=== PATIENT | male | born 1955 | race Caucasian/White ===

== ENCOUNTER → 2020-05-17 12:45 | Outpatient (CLI) | payer MEDICARE, SELFPAY ==
[2020-05-17 18:59] LABS: SARS-CoV-2 RNA PCR Negative
== END ==
PROVIDERS: Visit Provider Internal Medicine Gastroenterology
DX: Z01.812 Encounter for preprocedural laboratory examination (principal); Z20.822 Contact with and (suspected) exposure to COVID-19
CPT/HCPCS: C9803; U0003; U0005

== ENCOUNTER 2020-05-20 01:06 | Day surgery (SDC) | payer MEDICARE, SELFPAY ==
[2020-05-08 14:57] VITALS: BMI 31.1
[2020-05-20 09:41] VITALS: BP 159/78; PULSE 58; RESP 16; TEMP 36.2; O2SAT 100
[2020-05-20] MEDS: LACTATED RINGERS 1,000 ML 150 ML IV CONT (10:08)
[2020-05-20 10:14] LABS: Glucose Point of Care 74 (65-105)
--- NOTE | 2020-05-20 10:36 | WPDANESEPPF ---
Anes - Initial Pre Proc Eval Procedure: Operation Date: 05/20/20 11:15 Proposed Procedures p Colonoscopy - Petr Michaels MD Date/Time: 05/20/20 10:36 Surgeon: Petr Michaels MD Pre Op Diagnosis: positive cologuard Patient Data Age: 64 Gender: M Height: 5 ft 11 in Weight: 100.7 kg Last Vital Signs Temp 97.2 F L 05/20/20 09:41 Pulse 58 L 05/20/20 09:41 Resp 16 05/20/20 09:41 BP 159/78 H 05/20/20 09:41 Pulse Ox 100 05/20/20 09:41 Allergies Allergy/AdvReac Type Severity Reaction Status Date / Time prednisone AdvReac Intermediate INCREASED Verified 05/20/20 09:40 GLUCOSE LEVEL Cat Dander Allergy Severe BREATHING Uncoded 05/20/20 09:40 DIFFICULTY Dust Allergy Severe BREATHING Uncoded 05/20/20 09:40 DIFFICULTY Home Medications Medication Instructions Recorded Confirmed Type albuterol sulfate 2 puff INHALATION Q4-6H PRN 05/08/20 05/20/20 History buspirone 10 mg PO TID 05/08/20 05/20/20 History cyclobenzaprine 10 mg PO TID PRN 05/08/20 05/20/20 History vvvzjmdygfw-lguouuwya-fattenfw 1 ea INHALATION DAILY 05/08/20 05/20/20 History [Trelegy Ellipta] gabapentin 300 mg PO TID 05/08/20 05/20/20 History hydrocodone-acetaminophen 1 tablet PO BID 05/08/20 05/20/20 History insulin glargine [Lantus Solostar 44 unit SUBCUT QAM 05/08/20 05/20/20 History U-100 Insulin] levothyroxine 200 mcg PO DAILY 05/08/20 05/20/20 History lisinopril 20 mg PO DAILY 05/08/20 05/20/20 History metoprolol succinate 100 mg PO DAILY 05/08/20 05/20/20 History pantoprazole 40 mg PO DAILY 05/08/20 05/20/20 History pravastatin 40 mg PO DAILY 05/08/20 05/20/20 History rivaroxaban [Xarelto] 20 mg PO HS 05/08/20 05/20/20 History sodium,potassium,mag sulfates 17.5 See Rx Instructions PO .COMPLEX 05/08/20 05/20/20 Rx gram-3.13 gram-1.6 gram oral soln #354 ml Laboratory Tests 05/20/20 10:07 POC Capillary Glucose 74 mg/dl mg/dl (65-105) Patient hx anesthesia problems: none Family hx anesthesia problems: none PMFSH Past Medical History Medical History (Updated 05/20/20 @ 10:36 by Jose De Jesus Garnica MD) Atrial fibrillation had ablation COPD (chronic obstructive pulmonary disease) Diabetes Hyperlipidemia Hypertension Hypothyroid Social History Social History Smoking packs per day: 1 Smoking cigarettes per day: 20.0 Years smoked: 53 Smoking pack-years: 53.00 Smoking status: Current every day smoker Tobacco type: cigarettes Alcohol intake: current Drinks per week: 4 Alcohol use details: BEERS Substance use: never Substance use type: does not use Living arrangements: with family Spiritual care concerns: No Anes - Eval Final PreProcedure Day of Procedure 05/20/20 10:36 Patient weight: obese Heart: regular rate and rhythm Lungs: clear to auscultation Airway: Mallampati scale class II Neurological: alert and oriented Last oral intake: >/= 8 hours ASA classification: III Emergent: no Anesthetic plan: proceed Anesthesia type and monitoring: general GIVS and standard monitoring Informed Consent: The patient's anesthetic plan and its attendant risks and benefits were discussed with the patient/family/POA. Questions were solicited and answers provided to the satisfaction of the patient/family/POA.
--- NOTE | 2020-05-20 10:52 | PM.HPGS ---
History of Present Illness History of Present Illness Consent: Risks, benefits, and alternatives have been discussed and questions answered. Patient agrees to proceed with procedure. Chief complaint: positive cologuard Narrative: Binu Lynch is a 64 year old male with + cologuard, had colonoscopy about 6 years ago. Review of Systems Constitutional: Constitutional: Denies headache(s) and Denies weakness Eyes: Eyes: Denies blurry vision ENT: Reports Normal hearing present, Denies headache(s) and Denies neck pain Cardiovascular: Cardiovascular: Denies chest pain and Denies dyspnea Respiratory: Respiratory: Denies dyspnea Gastrointestinal: Gastrointestinal: Reports no additional gastrointestinal complaints Genitourinary: Genitourinary: Denies dysuria Musculoskeletal: Musculoskeletal: Denies neck pain Integumentary/Breasts: Skin/Breast: Denies dry skin Neurologic: Reports Normal hearing present, Denies headache(s) and Denies weakness Psychiatric: Psychiatric: Denies anxiety Endocrine: Endocrine: Denies change in body appearance Hematologic/Lymphatic: Hematologic/Lymphatic: Denies easy bleeding Allergic/Immunologic: Allergic/Immunologic: Denies urticaria PMFSH Past Medical History Medical History (Updated 05/20/20 @ 10:52 by Petr Michaels MD) Atrial fibrillation had ablation COPD (chronic obstructive pulmonary disease) Diabetes Hyperlipidemia Hypertension Hypothyroid Positive colorectal cancer screening using Cologuard test Social History Social History Smoking packs per day: 1 Smoking cigarettes per day: 20.0 Years smoked: 53 Smoking pack-years: 53.00 Smoking status: Current every day smoker Tobacco type: cigarettes Alcohol intake: current Drinks per week: 4 Alcohol use details: BEERS Substance use: never Substance use type: does not use Living arrangements: with family Spiritual care concerns: No Meds Home Medications and Allergies Home Medications Medication Instructions Recorded Confirmed Type albuterol sulfate 2 puff INHALATION Q4-6H PRN 05/08/20 05/20/20 History buspirone 10 mg PO TID 05/08/20 05/20/20 History cyclobenzaprine 10 mg PO TID PRN 05/08/20 05/20/20 History pybgonycfow-bweczwmkx-rllhfshr 1 ea INHALATION DAILY 05/08/20 05/20/20 History [Trelegy Ellipta] gabapentin 300 mg PO TID 05/08/20 05/20/20 History hydrocodone-acetaminophen 1 tablet PO BID 05/08/20 05/20/20 History insulin glargine [Lantus Solostar 44 unit SUBCUT QAM 05/08/20 05/20/20 History U-100 Insulin] levothyroxine 200 mcg PO DAILY 05/08/20 05/20/20 History lisinopril 20 mg PO DAILY 05/08/20 05/20/20 History metoprolol succinate 100 mg PO DAILY 05/08/20 05/20/20 History pantoprazole 40 mg PO DAILY 05/08/20 05/20/20 History pravastatin 40 mg PO DAILY 05/08/20 05/20/20 History rivaroxaban [Xarelto] 20 mg PO HS 05/08/20 05/20/20 History sodium,potassium,mag sulfates 17.5 See Rx Instructions PO .COMPLEX 05/08/20 05/20/20 Rx gram-3.13 gram-1.6 gram oral soln #354 ml Allergies Allergy/AdvReac Type Severity Reaction Status Date / Time prednisone AdvReac Intermediate INCREASED Verified 05/20/20 09:40 GLUCOSE LEVEL Cat Dander Allergy Severe BREATHING Uncoded 05/20/20 09:40 DIFFICULTY Dust Allergy Severe BREATHING Uncoded 05/20/20 09:40 DIFFICULTY Vital Signs Vital Signs - 24 hr 05/20/20 09:41 Temperature 97.2 F L Pulse Rate 58 L Respiratory Rate 16 Blood Pressure 159/78 H Pulse Oximetry 100 Exam Const: General: comfortable and no acute distress HENMT: General nose exam: Normal nares present Eyes: General: appearance normal, both eyes and all related structures Neck: Neck: no JVD Resp: Auscultation: clear to auscultation bilaterally Cardio: Rate: regular rate Rhythm: regular rhythm GI: Inspection: non-distended GI Palp: Yes Soft to palpation Skin: General skin exam: normal color Neuro: General: gait nor
[2020-05-20 11:21] VITALS: BP 134/60; PULSE 53; RESP 15; O2SAT 97
[2020-05-20 11:31] VITALS: BP 148/80; PULSE 50; RESP 17; O2SAT 98
[2020-05-20 11:41] VITALS: BP 167/84; PULSE 50; RESP 18; O2SAT 99
== END 2020-05-20 11:48 | disposition home or self-care (01) ==
PROVIDERS: Visit Provider Internal Medicine Gastroenterology
PROC: 0DJD8ZZ Inspection of Lower Intestinal Tract, Via Natural or Artificial Opening Endoscopic (ICD-10-PCS; CPT 45378; principal; 2020-05-20 11:15)
DX: R19.5 Other fecal abnormalities (principal); D12.5 Benign neoplasm of sigmoid colon; I48.20 Chronic atrial fibrillation, unspecified; I10 Essential (primary) hypertension; J44.9 Chronic obstructive pulmonary disease, unspecified; E78.5 Hyperlipidemia, unspecified; E03.9 Hypothyroidism, unspecified; F17.210 Nicotine dependence, cigarettes, uncomplicated
CPT/HCPCS: 45385; 45380; 82948; 88305; J2704; J7120

== ENCOUNTER 2020-10-23 12:36 | Inpatient (IN) | payer MEDICARE, SELFPAY ==
[2020-10-23] VITALS (9 sets, daily range): BP systolic 138–184; BP diastolic 64–88; PULSE 44–64; RESP 12–20; TEMP 36.6–36.9; O2SAT 96–99; BMI 31.0
--- NOTE | ~2020-10-23 | XR_ITS ---
XR chest 1V 10/23/2020 13:30 Indication: Dyspnea. History of A. fib. COPD. Procedure: PA view of the chest Comparison: Comparison to multiple prior studies sequentially, with oldest reviewed study dated 04/06. Findings: Heart size normal. There are calcified granulomas in the right midlung. There is left basil ar atelectasis/scarring. No focal pneumonia, edema, pleural effusion or pneumothorax. Impression: 1: Left basilar atelectasis/scarring. Reviewed, dictated and finalized at location A. Impression: 1: Left basilar atelectasis/scarring.
--- NOTE | ~2020-10-23 | MR_ITS ---
EXAMINATION: MR brain/brain stem wo con DATE: 10/24/2020 11:51 INDICATION: Transient ischemic attack. TECHNIQUE: Magnetic resonance imaging (MRI) of the brain and brainstem was performed without intraven ous contrast. Sequences included sagittal and axial T1-weighted FSE, axial diffusion-weighted FS EPI, axial T2*-weighted GRE, axial T2-weighted FLAIR Propeller, and axial T2-weighted Propeller. Apparent diffusion coefficient (ADC) maps were created. COMPARISON: Head CT 10/23/2020 FINDINGS: There is a small acute infarct in the left thalamus. There are old lacunar infarcts in the bilateral basal ganglia. There is no intracranial hemorrhage or abnormal mass lesion. There are scatt ered areas of nonspecific increased T2-weighted signal intensity in the cerebral white matter, which is within normal limits for the patient's age. The ventricles are normal in size. There is mild mucos al thickening in the paranasal sinuses. There are likely changes of ocular lens replacement surgeries . The mastoid air cells are normal. IMPRESSION: 1. Small acute infarct in the left thalamus. 2. Old lacunar infarcts in the bilateral basal ganglia. Reviewed, dictated and finalized at location B.
--- NOTE | ~2020-10-23 | US_ITS ---
EXAMINATION: US carotid duplex BI DATE: 10/24/2020 13:21 INDICATION: Acute infarct in left thalamus. TECHNIQUE: Grayscale, color Doppler, and pulsed Doppler images of the cervical carotid arteries were obtained. The degree of vessel stenosis is placed in one of the following categories: normal, <50%, 5 0-69%, >=70% but less than near-occlusion, near-occlusion, or total occlusion. Note that percent sten osis relative to normal distal artery lumen diameter is indirectly measured from velocity measurement s as described by Tai, et al. Radiology 2003; 229:340-346. COMPARISON: None. FINDINGS: RIGHT: The right common carotid artery (CCA) peak systolic velocity (PSV) is 78 cm/s. The right internal car otid artery (ICA) PSV is 140 cm/s. The right ICA end-diastolic velocity (EDV) is 38 cm/s. The right I CA/CCA PSV ratio is 1.8. Grayscale and color Doppler images yield an estimate of >=50% diameter reduc tion from plaque in the ICA. There is antegrade flow in the right vertebral artery. LEFT: The left CCA PSV is 94 cm/s. The left ICA PSV is 85 cm/s. The left ICA EDV is 16 cm/s. The left ICA/C CA PSV ratio is 0.9. Grayscale and color Doppler images yield an estimate of <50% diameter reduction from plaque in the ICA. There is antegrade flow in the left vertebral artery. IMPRESSION: 1. 50-69% stenosis in the right internal carotid artery. 2. <50% stenosis in the left internal carotid artery. Reviewed, dictated and finalized at location B.
--- NOTE | ~2020-10-23 | CT_ITS ---
EXAMINATION: CT brain wo con DATE: 10/23/2020 13:23 INDICATION: Right facial numbness. TECHNIQUE: Computed tomography (CT) of the head was performed without intravenous contrast. The mA wa s adjusted according to patient size. Iterative reconstruction technique was employed. The dose-lengt h product was 605.33 mGy-cm. COMPARISON: Head CT 02/17/2015 FINDINGS: There is an old lacunar infarct in the right lentiform nucleus, new from 02/17/15. There is no intracranial hemorrhage, acute infarction, or abnormal intracranial mass lesion. The ventricles a re normal in size. There are likely changes of ocular lens replacement surgeries. There is mild mucos al thickening in the paranasal sinuses. The mastoid air cells are normal. IMPRESSION: 1. Old lacunar infarct in the right lentiform nucleus. Reviewed, dictated and finalized at location B.
--- NOTE | 2020-10-23 12:41 | ECG_ITS ---
Measurements Intervals [address] Rate: 54 P: 75 ND: 183 QRS: -12 QRSD: 95 T: 15 QT: 461 QTc: 437 Interpretive Statements SINUS BRADYCARDIA EARLY PRECORDIAL R/S TRANSITION BORDERLINE T WAVE ABNORMALITY- INFERIOR LEADS BORDERLINE ECG Electronically Signed On 10-23-2020 13:14:33 CDT by Dago Henry D.O.
[2020-10-23 13:13] LABS: Glucose Point of Care 129 mg/dl (65-105)
[2020-10-23 13:24] LABS: Basophils Absolute Auto 0.1 K/mm3 (0.0-0.1); Basophils Percent Auto 0.9 % (0.2-1.2); Eosinophils Absolute Auto 0.4 K/mm3 (0-0.3); Eosinophils Percent Auto 4.9 % (0-4.4); Hematocrit 45.3 % (42.0-52.0); Hemoglobin 14.9 g/dL (14.0-18.0); Immature Granulocyte Absolute 0.02 K/mm3 (0.00-0.031); Immature Granulocyte Percent A 0.3 % (0-0.5); Lymphocytes Absolute Auto 2.57 K/mm3 (0.9-3.2); Lymphocytes Percent Auto 32.9 % (18.3-44.2); Mean Corpuscular HGB Conc 32.9 g/dl (32-36); Mean Corpuscular Hemoglobin 32.5 pg (26-34); Mean Corpuscular Volume 98.7 fl (80-100); Mean Platelet Volume 9.7 fl (7.4-10.4); Monocytes Absolute Auto 0.7 K/mm3 (0.1-0.6); Monocytes Percent Auto 9.4 % (2.6-8.5); Neutrophils Percent Auto 51.6 % (45.5-73.1); Platelet Count Result 223 k/mm3 (150-375); Red Blood Count 4.59 M/mm3 (4.6-6.20); Red Cell Distribution Width 13.1 % (11.5-14.5); White Blood Count 7.8 K/mm3 (4.5-10.0)
[2020-10-23 13:35] LABS: Anion Gap 8 mmol/L (8-16); Blood Urea Nitrogen 18 mg/dL (9-20); Calcium 9.3 mg/dL (8.4-10.2); Carbon Dioxide 25 mmol/L (22-30); Chloride 104 mmol/L (98-107); Estimated CRCL calculation 66 ml/min; Estimated Glomerular Filt Rate > 60; Glucose 128 mg/dL (65-110); Potassium 4.3 mmol/L (3.4-5.0); Sodium 137 mmol/L (137-145)
--- NOTE | 2020-10-23 13:35 | ED.GENADULT ---
HPI - General Adult General Chief complaint: Neuro Symptoms/Deficit Stated complaint: NEURO SYM Time Seen by Provider: 10/23/20 13:04 Source: patient History of Present Illness HPI narrative: Patient is a 64 y/o male complaining of right arm, right lip and tongue numbness since yesterday afternoon. He describes his numbness as moderate. There is no known alleviating or exacerbating factor. He has no weakness. His right arm numbness has resolved spontaneously, but he still has some right lip and tongue numbness/tingling sensation. Related Data Home Medications Medication Instructions Recorded Confirmed albuterol sulfate 2 puff INHALATION Q4-6H PRN 05/08/20 10/23/20 buspirone 10 mg PO BID 05/08/20 10/23/20 cyclobenzaprine 10 mg PO TID PRN 05/08/20 10/23/20 uyydyvghujy-vgxcvuwhh-qqgcduus 1 ea INHALATION DAILY 05/08/20 10/23/20 [Trelegy Ellipta] gabapentin 300 mg PO DAILY 05/08/20 10/23/20 hydrocodone-acetaminophen 1 tablet PO QID 05/08/20 10/23/20 insulin glargine [Lantus Solostar 55 unit SUBCUT QAM 05/08/20 10/23/20 U-100 Insulin] levothyroxine 200 mcg PO DAILY 05/08/20 10/23/20 lisinopril 20 mg PO DAILY 05/08/20 10/23/20 metoprolol succinate 100 mg PO DAILY 05/08/20 10/23/20 pantoprazole 40 mg PO DAILY 05/08/20 10/23/20 pravastatin 40 mg PO DAILY 05/08/20 10/23/20 rivaroxaban [Xarelto] 20 mg PO HS 05/08/20 10/23/20 Allergies Allergy/AdvReac Type Severity Reaction Status Date / Time prednisone AdvReac Intermediate INCREASED Verified 10/23/20 17:27 GLUCOSE LEVEL Cat Dander Allergy Severe BREATHING Uncoded 10/23/20 17:27 DIFFICULTY Dust Allergy Severe BREATHING Uncoded 10/23/20 17:27 DIFFICULTY Review of Systems Constitutional: Constitutional: Denies chills, Denies fever(s), Denies headache(s) and Denies weakness Eyes: Eyes: Denies blurry vision ENT: Denies headache(s) and Denies neck pain Cardiovascular: Cardiovascular: Denies chest pain and Denies dyspnea Respiratory: Respiratory: Denies cough and Denies dyspnea Gastrointestinal: Gastrointestinal: Denies abdominal pain, Denies diarrhea, Denies nausea and Denies vomiting Genitourinary: Genitourinary: Denies hematuria and Denies dysuria Musculoskeletal: Musculoskeletal: Denies back pain and Denies neck pain Neurologic: Denies headache(s), Reports paresthesias and Denies weakness [facility] Past Medical History Medical History (Updated 10/23/20 @ 18:09 by Shonna Gonzalez MD) Atrial fibrillation had ablation COPD (chronic obstructive pulmonary disease) Diabetes Hyperlipidemia Hypertension Hypothyroid Positive colorectal cancer screening using Cologuard test Social History Social History Smoking packs per day: 1 Smoking cigarettes per day: 20.0 Years smoked: 50 Smoking pack-years: 50.00 Smoking status: Current every day smoker Tobacco type: cigarettes Second hand tobacco smoke exposure: Yes Alcohol intake: current Drinks per week: 6 Alcohol use details: BEERS Substance use: never Substance use type: does not use Gender identity (if verbalized by the patient): Male Sexual Orientation (if Verbalized by the Patient): Straight or Heterosexual Spiritual care concerns: No Exam Const: General: no acute distress and well developed Orientation/consciousness: oriented to person, oriented to place, oriented to time and patient oriented x3 HENMT: Head: normocephalic Ears: external ears normal General nose exam: Normal external nose present Eyes: General: appearance normal, both eyes and all related structures Conjunctivae: conjunctivae normal Neck: Neck: normal visual inspection and full ROM Chest: Chest palpation & inspection: normal inspection of the chest and no tenderness Resp: Effort & Inspection: normal respiratory effort Auscultation: clear to auscultation bilaterally Cardio: Rate: bradycardic Rhythm: regular rhythm GI: GI Palp: No abdominal tenderness and Yes Soft to palpation Ski
[2020-10-23 13:37] LABS: INR 1.6; Prothrombin Time 18.7 Seconds (11.1-14.7)
[2020-10-23 13:38] LABS: Partial Thromboplastin Time 41.8 SECONDS (22.3-36.8)
[2020-10-23 13:47] LABS: Troponin I < 0.012 ng/mL (0.000-0.034)
--- NOTE | 2020-10-23 17:10 | ADMGEN ---
This patient, Binu Lynch, was admitted to [facility] Surg Room 323-02. Patient/family oriented to hospital policies and general routines including ID bracelet, bed and alarms, visiting hours, pain management, procedures, bathroom and other care routines, personal items, smoking policy, room service/diet, and visiting hours. Information on how to activate the Rapid Response Team has been discussed. Patient/Family are encouraged to report perceived risks to care and to ask questions if they do not understand what they are told or what they should do.
--- NOTE | 2020-10-23 21:26 | PC.NURSE ---
Spoke with Dr. Silva regarding resuming pt's home med, Xarelto. Ok to resume patient's HS meds for tonight, xarelto including. Head CT not showing any intracranial hemorrhage. Pt states he took his Lantus this AM.
[2020-10-23] MEDS: RIVAROXABAN 20 MG TABLET PO (22:04)
[2020-10-23 22:08] LABS: Glucose Point of Care 189 mg/dl (65-105)
--- NOTE | 2020-10-23 22:48 | PM.IMHP ---
H&P: HPI History of Present Illness Date/Time: 10/23/20 22:48 Chief Complaint: Paresthesia Narrative: Patient is a 64 y/o male complaining of right arm right leg, right lip and tongue numbness and tingling sensation that started at work yesterday. Has not worsened but remains steady whole day yesterday. He was out of town working at the time when the symptoms started. He finished his work went to bed woke up this morning felt tired tingling and numbness still remain the same drove back home this morning and came to the ER for evaluation. Since been to the hospital he reports the right arm and right leg numbness has resolved he still has persistent right lip and tongue numbness and tingling sensation but is better than what it was yesterday. He denies any weakness in His arm her leg. his admitted for further evaluation and management. EKG showed sinus bradycardia Chest x-ray with left basilar atelectasis or scarring calcified granulomas in the right mid lung CT head old lacunar infarct in the right lentiform nucleus Labs with normal CBC blood glucose of 128 negative troponin Review of Systems Review of Systems: - CONSTITUTIONAL: Denies weight loss, fever and chills. - HEENT: Denies changes in vision and hearing - RESPIRATORY: Denies SOB and cough. - CV: Denies palpitations and CP. - GI: Denies abdominal pain, nausea, vomiting and diarrhea. - : Denies dysuria and urinary frequency. - MSK: Denies myalgia and joint pain. - SKIN: Denies rash and pruritus. - NEUROLOGICAL: Denies headache and syncope. - PSYCHIATRIC: Denies recent changes in mood. Denies anxiety and depression. All systems reviewed & are unremarkable except as noted in HPI and below Constitutional: Constitutional: Reports fatigue and Reports weakness Neurologic: Reports weakness Endocrine: Endocrine: Reports fatigue [facility] Past Medical History Medical History (Updated 10/23/20 @ 22:54 by Abner Stoddard MD) Atrial fibrillation had ablation COPD (chronic obstructive pulmonary disease) Diabetes Hyperlipidemia Hypertension Hypothyroid Positive colorectal cancer screening using Cologuard test Social History Social History Smoking packs per day: 1 Smoking cigarettes per day: 20.0 Years smoked: 50 Smoking pack-years: 50.00 Smoking status: Current every day smoker Tobacco type: cigarettes Second hand tobacco smoke exposure: Yes Alcohol intake: current Drinks per week: 6 Alcohol use details: NAMRATA Substance use: never Substance use type: does not use Gender identity (if verbalized by the patient): Male Sexual Orientation (if Verbalized by the Patient): Straight or Heterosexual Spiritual care concerns: No Meds Home Medications and Allergies Home Medications Medication Instructions Recorded Confirmed Type albuterol sulfate 2 puff INHALATION Q4-6H PRN 05/08/20 10/23/20 History buspirone 10 mg PO BID 05/08/20 10/23/20 History cyclobenzaprine 10 mg PO TID PRN 05/08/20 10/23/20 History gaocsydcvzy-nkbxdbkyx-cijybvvv 1 ea INHALATION DAILY 05/08/20 10/23/20 History [Trelegy Ellipta] gabapentin 300 mg PO DAILY 05/08/20 10/23/20 History hydrocodone-acetaminophen 1 tablet PO QID 05/08/20 10/23/20 History insulin glargine [Lantus Solostar 55 unit SUBCUT QAM 05/08/20 10/23/20 History U-100 Insulin] levothyroxine 200 mcg PO DAILY 05/08/20 10/23/20 History lisinopril 20 mg PO DAILY 05/08/20 10/23/20 History metoprolol succinate 100 mg PO DAILY 05/08/20 10/23/20 History pantoprazole 40 mg PO DAILY 05/08/20 10/23/20 History pravastatin 40 mg PO DAILY 05/08/20 10/23/20 History rivaroxaban [Xarelto] 20 mg PO HS 05/08/20 10/23/20 History Allergies Allergy/AdvReac Type Severity Reaction Status Date / Time prednisone AdvReac Intermediate INCREASED Verified 10/23/20 17:27 GLUCOSE LEVEL Cat Dander Allergy Severe BREATHING Uncoded 10/23/20 17:27 DIFFICULTY Dust Allergy Severe BREATHING Unco
[2020-10-23 23:41] LABS: Hemoglobin A1C 5.9 % (<5.7)
[2020-10-24] VITALS (11 sets, daily range): BP systolic 149–175; BP diastolic 82–92; PULSE 44–57; RESP 16–20; TEMP 35.8–36.1; O2SAT 94–97
[2020-10-24] MEDS: ASPIRIN 81 MG CHEWABLE TABLET 324 MG PO (00:07)
[2020-10-24] MEDS: LEVOTHYROXINE SODIUM 100 MCG TABLET 200 MCG PO (06:12)
[2020-10-24 07:15] LABS: Glucose Point of Care 120 mg/dl (65-105)
--- NOTE | 2020-10-24 07:19 | PM.IMPN ---
Progress Note: A&P Assessment and Plan (1) Numbness on right side: Code(s): R20.0 - Anesthesia of skin Status: Acute (2) Diabetes: Code(s): E11.9 - Type 2 diabetes mellitus without complications Status: Inactive (3) Atrial fibrillation: Code(s): I48.91 - Unspecified atrial fibrillation Status: Inactive (4) COPD (chronic obstructive pulmonary disease): Code(s): J44.9 - Chronic obstructive pulmonary disease, unspecified Status: Inactive (5) Hyperlipidemia: Code(s): E78.5 - Hyperlipidemia, unspecified Status: Inactive (6) Hypertension: Code(s): I10 - Essential (primary) hypertension Status: Inactive (7) Hypothyroid: Code(s): E03.9 - Hypothyroidism, unspecified Status: Inactive (8) Colon polyp: Code(s): K63.5 - Polyp of colon Status: Acute Additional Plan # right-sided paresthesia started since 10/22/2020. CT head negative for acute stroke. Does have evidence of old lacunar infarct in the right lentiform nucleus. MRI of the brain showed small acute infarct in the left thalamus. It also showed old lacunar infarct in the bilateral basal ganglia. Carotid Doppler showed 50-70% stenosis in the right internal carotid artery. It showed less than 50% stenosis in the left internal carotid artery. He was on Xarelto but I will hold it off until he is evaluated by Neurology Service for concern for hemorrhagic transformation. I discussed it with the neurologist at [facility] and he agrees with that. He does have other risk factors for ischemic stroke which includes current active smoker, diabetes. Lipid profile seems appropriate. Counseled on smoking cessation will check his A1c for diabetes control. I will continue aspirin but will hold Xarelto. Will continue on his statin. He need neurology evaluation. I discussed it with the patient for transferring him to the hospital where he can be seen by Neurology. He agreed to it. I called [facility] at [place] and he is accepted by neurology service, Dr. Vasquez. I am waiting for a call from the hospitalist and bed assignment. # Atrial fibrillation currently sinus rhythm bradycardic. Will hold Xarelto. Echocardiogram is pending. Carotid ultrasound showed 50-70% stenosis in the right internal carotid artery. It showed less than 50% stenosis in the left internal carotid artery # Diabetes mellitus type 2 on insulin resume home insulin regimen. Continue insulin sliding scale. # Hypertension not optimal however due to possible acute stroke will allow permissive hypertension however long-term will need optimal blood pressure control with goal blood pressure less than 130/80 # Hypothyroidism resume home medication # COPD not in exacerbation continue outpatient regimen. # Current smoker advised to stop smoking. # Hyperlipidemia looks like he is only on pravastatin. Lipid profile reviewed in seems appropriate. Will switch pravastatin to atorvastatin due to current symptoms #Colon polyps # DVT prophylaxis already on Xarelto # Full code status Subjective Date/time seen: 10/24/20 07:19 He is still having numbness and tingling on the right side of the face. He denied have any focal neurological weakness. He denied have any visual symptoms. He denied have any headache nausea vomiting. His blood pressure has been noticed to be elevated but can allow all that to have permissive hypertension. He had an MRI done which showed an acute stroke in the thalamus. He need neurology evaluation. I discussed it with the patient for transferring him to the hospital where he can be seen by Neurology. He agreed to it. I called [facility] and he is accepted by neurology service, Dr. Vasquez. I am waiting for a call from the hospitalist and bed assignment. Review of Systems Review of Systems: All systems reviewed & are unremarkable except as noted in HPI and below Exam Narr
[2020-10-24 07:26] LABS: Alanine Aminotransferase 17 U/L (4-50); Albumin Level 4.3 g/dL (3.5-5.1); Alkaline Phosphatase 62 U/L (38-126); Aspartate Amino Transferase 22 U/L (17-59); Bilirubin,Total 0.4 mg/dL (0.2-1.3); Cholesterol 161 mg/dL (0-200); HDL Direct 38 mg/dL; Triglycerides 215 mg/dL (<150)
[2020-10-24 07:37] LABS: LDL Cholesterol Direct 83 mg/dL
[2020-10-24] MEDS: INSULIN GLARGINE (*BKC) 100 UNITS/ML 55 UNITS SUB-Q (08:08)
[2020-10-24] MEDS: HYDROcodone/acetaminophen (*CRX) 7.5-325 MG TABLET 1 TAB PO ×3 (08:12→17:12)
[2020-10-24] MEDS: GABAPENTIN 300 MG CAPSULE PO (08:12)
[2020-10-24] MEDS: METOPROLOL SUCCINATE EXT REL 100 MG TABCR PO (08:13)
[2020-10-24] MEDS: lisinopriL 20 MG TABLET PO (08:13)
[2020-10-24] MEDS: busPIRone HCL 10 MG TABLET PO ×2 (08:13→17:12)
[2020-10-24] MEDS: ASPIRIN 81 MG ENTERIC TABLET PO (08:13)
[2020-10-24] MEDS: PANTOPRAZOLE 40 MG TABLET PO (08:14)
[2020-10-24] MEDS: FLUTICASONE/UMECLIDIN/VILANTER 100-62.5-25 MCG ELLIPTA 1 PUFF INHALATION (10:15)
[2020-10-24] MEDS: ALBUTEROL SULFATE (*SP) AEROSOL 1 PUFF 2 PUFF INHALATION ×2 (10:15→20:54)
--- NOTE | 2020-10-24 12:20 | PM.TDS ---
Transfer Discharge Sum: Prov Provider Date of admission: 10/24/20 15:36 Primary care physician: PHYSICIAN NOT ON STAFF Admitting clinician: Sai Tong MD DS: Admitting Diagnosis Admitting Diagnosis Numbness of the right side with possible TIA Diabetes mellitus Atrial fibrillation on anticoagulation COPD Hypertension Hyperlipidemia Hypothyroidism Significant smoking history History of colon polyp DS: Discharge Diagnosis Discharge Diagnosis (1) Numbness on right side: Code(s): R20.0 - Anesthesia of skin Status: Acute Assessment and Plan: # acute ischemic stroke with Right-sided paresthesia started since 10/22/2020. CT head negative for acute stroke. Does have evidence of old lacunar infarct in the right lentiform nucleus. MRI of the brain showed small acute infarct in the left thalamus. It also showed old lacunar infarct in the bilateral basal ganglia. Carotid Doppler showed 50-70% stenosis in the right internal carotid artery. It showed less than 50% stenosis in the left internal carotid artery. He was on Xarelto but I will hold it off until he is evaluated by Neurology Service for concern for hemorrhagic transformation. I discussed it with the neurologist at [facility] and he agrees with that. He does have other risk factors for ischemic stroke which includes current active smoker, diabetes. Lipid profile seems appropriate. Counseled on smoking cessation will check his A1c for diabetes control. I will continue aspirin but will hold Xarelto. Will continue on his statin. He need neurology evaluation. I discussed it with the patient for transferring him to the hospital where he can be seen by Neurology. He agreed to it. I called [facility] at [place] and he is accepted by neurology service, Dr. Vasquez and hospitalist Dr. Carreno. He was transferred today once bed was made available. He left the hospital early in the morning and I did not see him today on 10/25. # Atrial fibrillation currently sinus rhythm bradycardic . Xarelto will be put on hold because of new acute stroke. Echocardiogram is pending. Carotid ultrasound showed 50-70% stenosis in the right internal carotid artery. It showed less than 50% stenosis in the left internal carotid artery # Diabetes mellitus type 2 on insulin resume home insulin regimen. Check A1c SSI # Hypertension not optimal however due to acute stroke will allow permissive hypertension and will hold his blood pressure medications. # Hypothyroidism resume home medication # COPD not in exacerbation continue home regimen # Current smoker he was encouraged to stop smoking. # Hyperlipidemia he was on pravastatin at the time of presentation which was transitioned to atorvastatin. Lipid profile seems appropriate. #Colon polyps continue to monitor # DVT prophylaxis subQ heparin will be started today since Xarelto is put on hold. # Full code status He was transferred to [facility] in [place] for neurology service evaluation and further recommendation. We do not have neurology coverage for this week. (2) Diabetes: Code(s): E11.9 - Type 2 diabetes mellitus without complications Status: Inactive (3) Atrial fibrillation: Code(s): I48.91 - Unspecified atrial fibrillation Status: Inactive (4) COPD (chronic obstructive pulmonary disease): Code(s): J44.9 - Chronic obstructive pulmonary disease, unspecified Status: Inactive (5) Hyperlipidemia: Code(s): E78.5 - Hyperlipidemia, unspecified Status: Inactive (6) Hypertension: Code(s): I10 - Essential (primary) hypertension Status: Inactive (7) Hypothyroid: Code(s): E03.9 - Hypothyroidism, unspecified Status: Inactive (8) Colon polyp: Code(s): K63.5 - Polyp of colon Status: Acute Transfer Discharge Sum: Med Medications Active and Home Medications: Home Medications albuterol sulfate 2 puff
[2020-10-24 12:28] LABS: Glucose Point of Care 112 mg/dl (65-105)
[2020-10-24 16:26] LABS: Glucose Point of Care 192 mg/dl (65-105)
[2020-10-24] MEDS: ATORVASTATIN 40 MG TABLET PO (20:34)
[2020-10-24] MEDS: HYDROcodone/acetaminophen (*CRX) 7.5-325 MG TABLET 0.5 TAB PO (21:18)
[2020-10-24 23:30] LABS: Glucose Point of Care 121 mg/dl (65-105)
[2020-10-25] VITALS: PULSE 51
[2020-10-25 04:00] VITALS: PULSE 49
[2020-10-25] MEDS: LEVOTHYROXINE SODIUM 100 MCG TABLET 200 MCG PO (05:34)
[2020-10-25 05:52] VITALS: BP 178/79; PULSE 50; RESP 16; TEMP 36.6; O2SAT 95
== END 2020-10-25 06:55 | disposition short-term general hospital (02) | DRG 65 ==
LOC: ANHED 13:11 → ANH3MEDSUR 16:41
PROVIDERS: Internal Medicine; Admitting Provider Family Medicine; Emergency Provider Emergency Medicine; Visit Provider Internal Medicine Critical Care Medicine
DX: I63.9 Cerebral infarction, unspecified (principal); I48.20 Chronic atrial fibrillation, unspecified; R20.0 Anesthesia of skin; E11.9 Type 2 diabetes mellitus without complications; I10 Essential (primary) hypertension; E03.9 Hypothyroidism, unspecified; E78.5 Hyperlipidemia, unspecified; J44.9 Chronic obstructive pulmonary disease, unspecified; F17.210 Nicotine dependence, cigarettes, uncomplicated; K63.5 Polyp of colon; R29.701 NIHSS score 1; Z79.01 Long term (current) use of anticoagulants
CPT/HCPCS: 36415; 70450; 70551; 71045; 80048; 80061; 80076; 82948; 83036; 84484; 85025; 85610; 85730; 93005; 93880; 94640; 97161; 97165; 99285; A9270; G0378; J1815

== ENCOUNTER 2021-05-05 13:32 | Outpatient (CLI) | payer MEDICARE, SELFPAY ==
--- NOTE | ~2021-05-05 | US_ITS ---
EXAMINATION: US carotid duplex BI DATE: 05/05/2021 15:02 INDICATION: Carotid atherosclerosis TECHNIQUE: Grayscale, color Doppler, and pulsed Doppler images of the cervical carotid arteries were obtained. The degree of vessel stenosis is placed in one of the following categories: normal, <50%, 5 0-69%, >=70% but less than near-occlusion, near-occlusion, or total occlusion. Note that percent sten osis relative to normal distal artery lumen diameter is indirectly measured from velocity measurement s as described by Tai, et al. Radiology 2003; [id number]. Notes: Normal: Peak systolic velocity <125 centimeters/sec and no plaque <50%. Peak systolic velocity <125 ( EDV <40; ICA/CCA PSV ratio <2.0; used these factors only a tandem lesions or low cardiac output or co ntralateral disease) 50-69 %: PSV 125-230 (EDV 40-100; ratio 2-4) >= 70% but less than near occlusion: PSV greater than 230 (EDV > 100; ratio> 4.0) Near Occlusion: PSV that is variable; markedly narrowed lumen Occlusion: Absent flow on color/spectral Doppler and no lumen on hinson scale. COMPARISON: None. FINDINGS: RIGHT: The right common carotid artery (CCA) peak systolic velocity (PSV) is 124 cm/s. The right internal ca rotid artery (ICA) PSV is 102 cm/s. The right ICA end-diastolic velocity (EDV) is 28 cm/s. The right ICA/CCA PSV ratio is 0.8. The external carotid artery (ECA) PSV is 200 cm/s. There is antegrade flow in the right vertebral artery. LEFT: The left CCA PSV is 96 cm/s. The left ICA PSV is 96 cm/s. The left ICA EDV is 34 cm/s. The left ICA/C CA PSV ratio is 1. The ECA PSV is 102 cm/s. There is antegrade flow in the left vertebral artery. IMPRESSION: 1. Less than 50% stenosis in the right internal carotid artery by sonographic criteria. 2. Less than 50% stenosis in the left internal carotid artery by sonographic criteria. Reviewed, dictated and finalized at location A. REGISTER MECHANIC IMPRESSION: 1. Less than 50% stenosis in the right internal carotid artery by sonographic john izaguirre. 2. Less than 50% stenosis in the left internal carotid artery by sonographic shakila pandey.
--- NOTE | ~2021-05-05 | US_ITS ---
US art doppler w press LE BI INDICATION: Peripheral vascular disease. Carotid atherosclerosis. TECHNIQUE: Segmental pressures and plethysmographic and Doppler waveforms of the brachial and lower e xtremity arteries were obtained. COMPARISON: None. FINDINGS: Right and left brachial artery pressures of 182 mm Hg and 186 mm Hg, respectively, are concordant (no rmal difference <= 30 mmHg). The right ankle-brachial index (BENSON) is 1 (normal >= 0.9-1.0). The right great toe-brachial index (TB I) is 0.59 (normal >= 0.60). The left BENSON is 0.99. The left TBI is 0.61. There is biphasic flow in the lower extremity arteries. IMPRESSION: 1. Normal bilateral ankle-brachial indices. Reviewed, dictated and finalized at location A. L ARMS ARTILLERY REPAIRER
== END 2021-05-05 13:33 | disposition home or self-care (01) ==
DX: I73.9 Peripheral vascular disease, unspecified (principal); I65.23 Occlusion and stenosis of bilateral carotid arteries
CPT/HCPCS: 93880; 93923

== ENCOUNTER 2021-05-08 06:59 | Outpatient (CLI) | payer MEDICARE, SELFPAY ==
--- NOTE | ~2021-05-08 | US_ITS ---
EXAMINATION: US aorta DATE: 05/08/2021 08:10 INDICATION: Abdominal aortic aneurysm. TECHNIQUE: Grayscale, color Doppler, and pulsed Doppler images of the aorta and common iliac arteries were obtained. COMPARISON: CT abdomen and pelvis 02/01/2010 FINDINGS: The aorta is normal in caliber. The right common iliac artery is normal in caliber. The left common i liac artery is normal in caliber. IMPRESSION: 1. No abdominal aortic aneurysm. Reviewed, dictated and finalized at location A. ER INSPECTOR
== END 2021-05-08 07:00 | disposition home or self-care (01) ==
LOC: ANHIMG 07:04
DX: I71.4 Abdominal aortic aneurysm, without rupture (principal)
CPT/HCPCS: 76775

== ENCOUNTER → 2021-12-23 09:15 | Outpatient (CLI) | payer MEDICARE, SELFPAY ==
--- NOTE | ~2021-12-23 | XR_ITS ---
EXAMINATION: XR chest 2V DATE: 12/23/2021 09:42 INDICATION: Shortness of breath. TECHNIQUE: Frontal and lateral views of the chest were obtained on 3 radiographs. COMPARISON: Chest single view 10/23/2020 FINDINGS: Calcified right lung nodules and calcified right hilar lymph nodes are consistent with old granulomatous disease. There is mild atelectasis at left lung base. No pleural effusion or pneumothor ax. The heart size is normal. There is an electronic implant in left anterior chest wall. There are c hanges of anterior fusion procedure in cervical spine. IMPRESSION: 1. Mild atelectasis at left lung base. Reviewed, dictated and finalized at location B.
--- NOTE | ~2021-12-23 | XR_ITS ---
EXAMINATION: XR shoulder LT min 2V DATE: 12/23/2021 09:42 INDICATION: Left shoulder pain. TECHNIQUE: 4 views of left shoulder were obtained. COMPARISON: None. FINDINGS: Bone alignment is normal. No fracture. There is moderate osteoarthritis of glenohumeral carl nt and mild osteoarthritis of acromioclavicular joint. There is a loose body in the glenohumeral join t. There are changes of anterior fusion procedures in cervical spine. IMPRESSION: 1. Polyarticular osteoarthritis. 2. Loose body in glenohumeral joint. Reviewed, dictated and finalized at location B.
== END ==
DX: M25.512 Pain in left shoulder (principal); J44.9 Chronic obstructive pulmonary disease, unspecified; M19.012 Primary osteoarthritis, left shoulder; M24.012 Loose body in left shoulder; J98.11 Atelectasis
CPT/HCPCS: 71046; 73030

== ENCOUNTER 2022-02-02 10:53 | Outpatient (CLI) | payer MEDICARE, SELFPAY ==
--- NOTE | ~2022-02-02 | CT_ITS ---
EXAMINATION: CT lung screening DATE: 02/02/2022 11:11 INDICATION: History of nicotine dependence. TECHNIQUE: Computed tomography (CT) of the chest was performed without intravenous contrast. The dose -length product was 282.45 mGy-cm. Automated exposure control and iterative reconstruction technique were employed. COMPARISON: CT dated 07/09/2010 FINDINGS: Heart size is normal. There are calcified mediastinal lymph nodes, consistent with chronic granulomatous disease. There is atherosclerosis of the aorta and coronary arteries. There are calcifi ed granulomas of the spleen. No thoracic lymphadenopathy. No significant pleural or pericardial effus ion. There is a 6 mm fissural nodule on the left without significant change from prior examination al lowing for technique. There is a 5 mm fissural nodule on the right, image 71. There is a stable 5 mm fissural nodule on the right, image 86. Right basilar atelectasis/scarring, slightly increased compar ed with prior study. Mild thoracic spondylosis. No focal lytic or blastic lesions. IMPRESSION: 1. Lung-RADS category 2: Benign appearance or behavior. Continue annual screening with noncontrast lo w-dose chest CT in 12 months. Reviewed, dictated and finalized at location A. TRIC MOTOR REPAIRING SUPERVISOR IMPRESSION: 1. Lung-RADS category 2: Benign appearance or behavior. Continue annual screeni ng with noncontrast low-dose chest CT in 12 months.
== END 2022-02-02 10:54 | disposition home or self-care (01) ==
DX: Z12.2 Encounter for screening for malignant neoplasm of respiratory organs (principal); Z87.891 Personal history of nicotine dependence
CPT/HCPCS: 71271

== ENCOUNTER → 2022-05-28 09:11 | Outpatient (CLI) | payer MEDICARE, SELFPAY ==
--- NOTE | ~2022-05-28 | CT_ITS ---
Non-contrast Head CT History: Headache COMPARISON: 10/23/2020 Technique: Axial non-contrast imaging of the brain was performed. Dose reduction technique was used on this scan by utilizing automated exposure control and iterative reconstruction technique. The dose -length product (DLP) was 599.57 mGy-cm. Findings: There is no evidence of intracranial hemorrhage, mass lesion, or acute infarct. Stable chr onic lacunar infarct in the right basal ganglia. The ventricles and subarachnoid spaces are normal i n size. The calvarium appears normal. The visualized paranasal sinuses and mastoid air cells are cl ear. Impression: No acute abnormality seen. Stable chronic lacunar infarct in the right basal ganglia. Reviewed, dictated and finalized at location . Impression: No acute abnormality seen. Stable chronic lacunar infarct in the right basal ganglia.
== END ==
DX: R51.9 Headache, unspecified (principal); Z86.73 Personal history of transient ischemic attack (TIA), and cerebral infarction without residual deficits
CPT/HCPCS: 70450

== ENCOUNTER → 2022-11-05 07:33 | Outpatient (CLI) | payer MEDICARE, SELFPAY ==
--- NOTE | ~2022-11-05 | US_ITS ---
Renal-Bladder ultrasound Clinical History: Chronic kidney disease Technique: Real-time sonographic imaging of the kidneys and urinary bladder was performed. Findings: The right kidney measures 11.7 cm in length and the left kidney measures 10.5 cm. There is no hydronephrosis or renal calculus identified. Renal cortical echogenicity is within normal limits. No renal mass lesion is identified. The urinary bladder is moderately distended at the time of this exam. No intraluminal echoes are iden tified. No abnormal wall thickening is seen. Impression: Unremarkable ultrasound of the kidneys and urinary bladder. Reviewed, dictated and finalized at location M. Impression: Unremarkable ultrasound of the kidneys and urinary bladder.
== END ==
DX: I12.9 Hypertensive chronic kidney disease with stage 1 through stage 4 chronic kidney disease, or unspecified chronic kidney disease (principal); E11.22 Type 2 diabetes mellitus with diabetic chronic kidney disease; N18.30 Chronic kidney disease, stage 3 unspecified
CPT/HCPCS: 76775

== ENCOUNTER 2023-08-07 08:05 | Emergency (ER) | payer MEDICARE, SELFPAY ==
--- NOTE | ~2023-08-07 | XR_ITS ---
XR knee RT min 4V DATE: 08/07/2023 08:22 INDICATION: Fall. Medial right knee pain TECHNIQUE: 4 views COMPARISON: None FINDINGS: There is moderately prominent distention of the suprapatellar bursa consistent with knee rosas int effusion. No fracture, dislocation, periosteal reaction or bone destruction is detected. Mild loss of medial compartment joint space. No radiopaque intra-articular loose body or chondrocalci nosis. Calcification of the femoral, popliteal and trifurcation arteries. IMPRESSION: Knee joint effusion; no fracture or dislocation Mild loss of medial compartment joint space Reviewed, dictated and finalized at location A.
[2023-08-07 08:07] VITALS: BP 153/84; PULSE 68; RESP 16; TEMP 36.3; O2SAT 98
--- NOTE | 2023-08-07 09:17 | ED.LOWEXIN ---
HPI - Extremity Injury (Lower) General Chief Complaint: Extremity Injury, Lower Stated Complaint: Right knee Pain Time Seen by Provider: 08/07/23 09:12 Source: patient Mode of arrival: ambulatory Limitations: no limitations History of Present Illness HPI Narrative: Patient presents with right knee pain. He was carrying a pipe when he accidentally stepped in a hole and twisted his leg. [place] a pop and pain and unable to bear weight. Initially had paresthesias but these resolved. Pain is along anterior surface as well as lateral and medial joint line. Has prescription for hydrocodone (unknown if 5mg/7.5mg/10mg) for chronic neck pain and took 1/2 a tablet of this at 3:30 this morning due to pain. drove him to the ED. History of a CVA for which he has slight right sided weakness at baseline. PCP Masoud in [facility]. Related Data Home Medications Medication Instructions Recorded Confirmed albuterol sulfate 90 mcg/actuation 2 puff inhalation Q4-6H PRN 05/08/20 10/23/20 aerosol inhaler Shortness Of Breath buspirone 10 mg tablet 10 mg PO BID 05/08/20 10/23/20 cyclobenzaprine 10 mg tablet 10 mg PO TID PRN Spasms 05/08/20 10/23/20 fluticasone fur. 100 mcg-umeclid 1 ea inhalation DAILY 05/08/20 10/23/20 62.5 mcg-vilant 25 mcg inhalat.powder (Trelegy Ellipta) gabapentin 300 mg tablet 300 mg PO DAILY 05/08/20 10/23/20 hydrocodone 7.5 mg-acetaminophen 1 tablet PO QID 05/08/20 10/23/20 325 mg tablet insulin glargine 100 unit/mL (3 55 unit subcut QAM 05/08/20 10/23/20 mL) subcutaneous pen (Lantus Solostar U-100 Insulin) levothyroxine 200 mcg tablet 200 mcg PO DAILY 05/08/20 10/23/20 lisinopril 20 mg tablet 20 mg PO DAILY 05/08/20 10/23/20 metoprolol succinate 100 mg 100 mg PO DAILY 05/08/20 10/23/20 tablet,extended release 24 hr pantoprazole 40 mg tablet,delayed 40 mg PO DAILY 05/08/20 10/23/20 release pravastatin 40 mg tablet 40 mg PO DAILY 05/08/20 10/23/20 rivaroxaban 20 mg tablet (Xarelto) 20 mg PO HS 05/08/20 10/23/20 Allergies Allergy/AdvReac Type Severity Reaction Status Date / Time prednisone AdvReac Intermediate INCREASED Verified 10/23/20 17:27 GLUCOSE LEVEL Cat Dander Allergy Severe BREATHING Uncoded 10/23/20 17:27 DIFFICULTY Dust Allergy Severe BREATHING Uncoded 10/23/20 17:27 DIFFICULTY PMFSH Past Medical History Medical History Atrial fibrillation had ablation COPD (chronic obstructive pulmonary disease) Diabetes History of CVA (cerebrovascular accident) mild R sided weakness at baseline Hyperlipidemia Hypertension Hypothyroid Positive colorectal cancer screening using Cologuard test Social History Social History Smoking packs per day: 1 Smoking cigarettes per day: 20.0 Years smoked: 50 Smoking pack-years: 50.00 Smoking status: Current every day smoker Tobacco type: cigarettes Second hand tobacco smoke exposure: Yes Alcohol intake: current Drinks per week: 6 Alcohol use details: BEERS Substance use: never Substance use type: does not use Living arrangements: with family Gender identity (if verbalized by the patient): Male Sexual Orientation (if Verbalized by the Patient): Straight or Heterosexual Spiritual care concerns: No Exam Narrative: GENERAL: Well-appearing, well-nourished, and in no acute distress. HEAD: Normocephalic, atraumatic. EYES: Non injected, non icteric ENT: Nares clear, no rhinorrhea or epistaxis. NECK: Supple. CHEST: Speaking in full sentences. No respiratory distress. HEART: Regular rate and rhythm. . ABDOMEN: Soft, nondistended. EXTREMITIES: Good muscle tone, no fasciculations. No edema. Mild TTP of anterior knee joint as well as medial and lateral aspects though vague/non-specific; not pinpoint. 5/5 strength on the left with dorsi/plantar flexion, knee flexion/extension; hip flexion/abbduction/adduction; 4/5 strength on the right with
[2023-08-07] MEDS: ACETAMINOPHEN 325 MG TABLET 650 MG PO (09:47)
[2023-08-07] MEDS: HYDROcodone/acetaminophen (*CRX) 5-325 MG TABLET 1 TAB PO (09:48)
== END 2023-08-07 10:00 | disposition home or self-care (01) ==
PROVIDERS: Emergency Provider Student in an Organized Health Care Education/Training Program
DX: M25.461 Effusion, right knee (principal); M25.561 Pain in right knee; F17.210 Nicotine dependence, cigarettes, uncomplicated; I48.91 Unspecified atrial fibrillation; J44.9 Chronic obstructive pulmonary disease, unspecified; E11.9 Type 2 diabetes mellitus without complications; E78.5 Hyperlipidemia, unspecified; I10 Essential (primary) hypertension; E03.9 Hypothyroidism, unspecified; I69.951 Hemiplegia and hemiparesis following unspecified cerebrovascular disease affecting right dominant side
CPT/HCPCS: 73564; 99283; A9270

== ENCOUNTER 2024-04-08 14:40 | Emergency (ER) | payer MEDICARE, SELFPAY ==
[2024-04-08 15:05] VITALS: PULSE 62; RESP 20; TEMP 36.6; O2SAT 99
--- NOTE | 2024-04-08 15:10 | ED.EXTPRO ---
HPI - Extremity Problem General Chief complaint: Extremity Problem,Nontraumatic Stated complaint: Right Foot Toe Pain Time Seen by Provider: 04/08/24 15:10 Source: patient Mode of arrival: ambulatory Limitations: no limitations History of Present Illness HPI Narrative: 68 y/o male presented for c/o right great toe pain for one week. Has taken hydrocodone for pain. Says the toe is swollen and is concerned for infection. denies redness, warmth, or discharge. Pt is scheduled with pcp in 2 days. Related Data Home Medications ?Medication ?Instructions ?Recorded ?Confirmed ?Last Taken ?Type albuterol sulfate 90 mcg/actuation 2 puff inhalation Q4-6H PRN 05/08/20 10/23/20 10/23/20 12:00 History aerosol inhaler Shortness Of Breath buspirone 10 mg tablet 10 mg PO BID 05/08/20 10/23/20 10/23/20 06:00 History cyclobenzaprine 10 mg tablet 10 mg PO TID PRN Spasms 05/08/20 10/23/20 Unknown History fluticasone fur. 100 mcg-umeclid 1 ea inhalation DAILY 05/08/20 10/23/20 10/23/20 06:00 History 62.5 mcg-vilant 25 mcg inhalat.powder (Trelegy Ellipta) gabapentin 300 mg tablet 300 mg PO DAILY 05/08/20 10/23/20 10/22/20 20:00 History hydrocodone 7.5 mg-acetaminophen 1 tablet PO QID 05/08/20 10/23/20 10/23/20 14:00 History 325 mg tablet insulin glargine 100 unit/mL (3 55 unit subcut QAM 05/08/20 10/23/20 10/23/20 06:00 History mL) subcutaneous pen (Lantus Solostar U-100 Insulin) levothyroxine 200 mcg tablet 200 mcg PO DAILY 05/08/20 10/23/20 10/23/20 06:00 History lisinopril 20 mg tablet 20 mg PO DAILY 05/08/20 10/23/20 10/23/20 06:00 History metoprolol succinate 100 mg 100 mg PO DAILY 05/08/20 10/23/20 10/23/20 06:00 History tablet,extended release 24 hr pantoprazole 40 mg tablet,delayed 40 mg PO DAILY 05/08/20 10/23/20 10/23/20 06:00 History release pravastatin 40 mg tablet 40 mg PO DAILY 05/08/20 10/23/20 10/23/20 06:00 History rivaroxaban 20 mg tablet (Xarelto) 20 mg PO HS 05/08/20 10/23/20 10/22/20 20:00 History Allergies Allergy/AdvReac Type Severity Reaction Status Date / Time prednisone AdvReac Intermediate INCREASED Verified 04/08/24 14:59 GLUCOSE LEVEL Cat Dander Allergy Severe BREATHING Uncoded 04/08/24 14:59 DIFFICULTY Dust Allergy Severe BREATHING Uncoded 04/08/24 14:59 DIFFICULTY Review of Systems Review of Systems: per HPI All systems reviewed & are unremarkable except as noted in HPI and below PMFSH Past Medical History Medical History History of CVA (cerebrovascular accident) mild R sided weakness at baseline Positive colorectal cancer screening using Cologuard test Hypothyroid Diabetes COPD (chronic obstructive pulmonary disease) Atrial fibrillation had ablation Hypertension Hyperlipidemia Social History Social History Smoking packs per day: 1 Smoking cigarettes per day: 20.0 Years smoked: 50 Smoking pack-years: 50.00 Smoking status: Current every day smoker Tobacco type: cigarettes Second hand tobacco smoke exposure: Yes Alcohol intake: current Drinks per week: 6 Alcohol use details: BEERS Substance use: never Substance use type: does not use Living arrangements: with family Gender identity (if verbalized by the patient): Male Sexual Orientation (if Verbalized by the Patient): Straight or Heterosexual Spiritual care concerns: No Comments At time of signature, I have reviewed and agree with nursing past medical, surgical, social and family history unless otherwise noted. Please see nursing chart for further information. There is no relevant family history pertinent to the presenting complaint Exam Narrative: GENERAL: Well-appearing CHEST: Speaks in full sentences. No respiratory distress. HEART: Regular rate and rhythm. Normal and equal peripheral pulses. EXTREMITIES: Right foot great toe with significant onychomycosis. Appears slightly tender with palpation over the nail. Nontender MTP. No significant swelling, erythema, ecchymosis, No fluctuance, No open wounds, or obvious deformity; alignment normal, pulse palpable and equal bilaterally, skin warm, dry, pink. Capillary refill less than 3 seconds. SKIN: Warm, dry, no rash. NEURO: Alert and oriented x3. PSYCH: Normal mood and affect Course Course Emergency Course: Patient is aware of diagnosis, understands and agrees to treatment plan. Anticipatory guidance given. Patient agrees to follow-up as directed and is aware of reasons to seek care at the emergency department. Portions of this record may have been created with voice recognition software Level of Care: Express Care Visit Vital Signs Vital signs: Vital Signs Temperature 98 F 04/08/24 15:05 Pulse Rate 62 04/08/24 15:05 Respiratory Rate 20 04/08/24 15:05 Pulse Oximetry 99 04/08/24 15:05 Oxygen Delivery Room Air 04/08/24 15:05 Temperature 98 F 04/08/24 15:05 Pulse Rate 62 04/08/24 15:05 Respiratory Rate 20 04/08/24 15:05 Pulse Oximetry 99 04/08/24 15:05 Oxygen Delivery Room Air 04/08/24 15:05 Reviewed MDM - Extremity (Nontraumatic) MDM Narrative Medical decision making narrative: Discussed physical exam findings. Rx augmentin. Advised f/u with podiatry for fungal infection. Advised supportive measures and signs/symptoms to go to the ER. Pt is appropriate for outpt treatment and f/u. Differential Diagnosis Differential diagnosis: Likely other (cellulitis, gout, metatarsalgia, onychomycosis, paronychia, ingrown nail) Discharge Plan Discharge Clinical Impression: Great toe pain Patient Disposition: Home, Self-Care Condition: Stable Instructions: Antibiotic Form Additional Instructions: Rest and elevate the Right foot to reduce pain and swelling activity as tolerated Apply ice 15-20 minute intervals several times a day Motrin 800mg every 8 hours, alternate with Tylenol 1000mg every 8 hours as needed Take antibiotic as directed Follow up with your primary care provider as scheduled in 2 days go to the ER for any worsening symptoms or concerns Patient Language: Brazilian Prescriptions: New amoxicillin-pot clavulanate 875-125 mg tablet 1 tablet PO Q12H 7 Days Qty: 14 0RF No Action cyclobenzaprine 10 mg Tablet 10 mg PO TID PRN (Reason: Spasms) pravastatin 40 mg tablet 40 mg PO DAILY lisinopril 20 mg tablet 20 mg PO DAILY metoprolol succinate 100 mg tablet extended release 24 hr 100 mg PO DAILY hydrocodone-acetaminophen 7.5-325 mg tablet 1 tablet PO QID Rx Instructions: takes 1/2 tab 4 times daily pantoprazole 40 mg tablet,delayed release (DR/EC) 40 mg PO DAILY buspirone 10 mg tablet 10 mg PO BID levothyroxine 200 mcg tablet 200 mcg PO DAILY albuterol sulfate 90 mcg/actuation HFA aerosol inhaler 2 puff INHALATION Q4-6H PRN (Reason: Shortness Of Breath) gabapentin 300 mg Tablet 300 mg PO DAILY Patient Comments: ONLY TAKES AT NIGHT 300MG Rx Instructions: takes at night Lantus Solostar U-100 Insulin 100 unit/mL (3 mL) insulin pen 55 unit SUBCUT QAM Xarelto 20 mg tablet 20 mg PO HS Trelegy Ellipta 100-62.5-25 mcg blister with device 1 ea INHALATION DAILY acetaminophen 500 mg capsule 1,000 mg PO Q6H PRN (Reason: pain) Qty: 30 0RF Follow-up/Referrals: PHYSICIAN,NATURAL RESOURCES TECHNICIAN [Primary Care Provider] - Time of Disposition: 15:24
== END 2024-04-08 15:34 | disposition home or self-care (01) ==
PROVIDERS: Emergency Provider Nurse Practitioner Family
DX: M79.674 Pain in right toe(s) (principal); F17.210 Nicotine dependence, cigarettes, uncomplicated; I48.91 Unspecified atrial fibrillation; E11.9 Type 2 diabetes mellitus without complications; Z79.4 Long term (current) use of insulin; I10 Essential (primary) hypertension; E03.9 Hypothyroidism, unspecified; J44.9 Chronic obstructive pulmonary disease, unspecified; Z86.73 Personal history of transient ischemic attack (TIA), and cerebral infarction without residual deficits; Z79.01 Long term (current) use of anticoagulants
CPT/HCPCS: 99213; G0463

== ENCOUNTER 2024-09-21 14:28 | Emergency (ER) | payer MEDICARE, SELFPAY ==
--- NOTE | ~2024-09-21 | XR_ITS ---
EXAM: XR knee RT min 4V DATE: 09/21/2024 16:57 HISTORY: pain, swelling, redness; no injury . COMPARISON: 08/07/2023. FINDINGS: Normal mineralization. No fracture or dislocation. No lytic or blastic lesion. Mild medial compartment osteoarthritis. No erosion or periosteal change. Atherosclerotic vascular calcifications . Subcutaneous edema and swelling over the patella and patellar tendon. Small knee joint effusion. IMPRESSION: No acute osseous finding in the right knee. Anterior soft tissue swelling, correlate for clinical findings of cellulitis, bursitis, or patellar tendinopathy. Reviewed, dictated and finalized at location K. IMPRESSION: No acute osseous finding in the right knee. Anterior soft tissue sw elling, correlate for clinical findings of cellulitis, bursitis, or patellar te ndinopathy.
[2024-09-21 14:31] VITALS: BP 172/77; PULSE 66; RESP 18; TEMP 36.9; O2SAT 97
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
--- OUTSIDE RECORDS SUMMARY | 2024-09-21 14:39 | XMS_ITS | Clinical Summary ---
Author Organization [facility] C Address [address] [place] [address] Care Team Providers Care Preparatory Technician Name Role Phone Nicanor Acosta MD Primary Care Provider Rubia Loomis CHARTER BOAT OPERATOR Unavailable [phone] Allergies Active Allergy Reactions Criticality Noted Date [...] Date Acute ischemic VBA thalamic stroke, left 021 Basal ganglia infarction 10/25/2020 Overview (10/25/2020): Old bilateral lacunar basal ganglia infarcts seen on MRI 10/23/2020 [place], [place] Ulcerative colitis without complications 021 Well [...] (03/29/2018): Added automatically from request for surgery [id number] Status post placement of implantable loop record er 08/07/2016 Overview (04/25/2018): nContact Surgicaltronic [id number] imp loop recorder for AF management s/p PVI imp on 04/12/18. Yamilka/Baylee [facility] History of anticoagulant therapy 09/21/2014 Overview (06/11/2016): Chronic anticoagulation Postprocedural state 09/21/2014 Overview (06/11/2016): S/P ablation of atrial fibrillation Atrial fibrillation 01/26/2014 Overview (06/11/2016): Atrial fibrillation Encounters Date Type Department Care Team Description 09/06/2024 10:30 AM CDT Office Visit [facility] Medical [facility] Cardiology [address] [place] [address] Citlaly Zavala NP Primary hypertension (Primary Dx); Paroxysmal atrial fibrillation (HCC); Lipid screening from Last 3 Months Surgical History Surgery Date Site/Laterality Comments SHOULDER SURGERY shoulder surgery NECK SURGERY neck surgery HERNIA REPAIR Hernia repair Medical History Medical History Date Comments Hypertension Hypertension Chronic obstructive pulmonar y disease (HCC) COPD Hx Other Medical Hypothyroidsim, Post Surgical Type 2 diabetes mellitus (HCC) D iabetes type 2; Comments: BCN 04/23/2014 - Atrial fibrillation, controlled (HCC) Chronic ulcerative colitis (HCC) Stroke (HCC) acute ischemic s troke of left thalamus 10/22/2020 Basal ganglia stroke (HCC) old l acunar bilateral infarcts of basal ganglia 10/23/2020 Family History Medical History Relation Name Comments Other Brother 2 surgical compli cations; Cause of : surgical complications Heart attack Father Myocardial Infa rction; Heart disease Father Heart disease; Cause of : Heart disease Heart failure Father Congestive Hea rt Failure; Cause of : Congestive Heart Failure Heart disease Mother Heart disease; Kidney disease Mother Macular degeneration Mother Congenital heart disease Sister Con genital heart disease; Relation Name Status Comments Brother 1 Brother 2 Father Mother Sister Social History Tobacco Use Types Packs/Day Years [...] on file 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 Gender Identity Not on file Sexual Orientation Not on file Obstetrics History Last Filed Vital Signs Vital Sign Reading [...] 09/06/2024 10:23 AM CDT Plan of Treatment Health Maintenance Due Date Last Done Comments Albumin Creatinine Ratio, Urine 1954 Colon Cancer Screening-Colonoscopy 1954 Depression Screening 1954 Hepatitis C Screening 1954 Prostate Cancer Screening-PSA 1954 Dilated Eye Exam 1954 Foot Exam 1954 Hepatitis B Screening 1972 Zoster Vaccine (2 of 3) 03/14/2013 01/17/2013 Pneumococcal vaccine 65+ (3 of 3 - PCV20 or PCV21) 12/10/2019 12/09/2014, 01/17/2013 Abdominal Aortic Aneurysm (A AA) Screen 12/16/2019 Well Visit 65+ 12/16/2019 Hemoglobin A1C 04/28/2021 10/26/2020 Fall Risk Assessment 10/26/2021 10/26/2020 eGFR 10/26/2021 10/26/2020, 10/25/2020 Lung Cancer Screening 05/26/2024 05/27/2023 Influenza Vaccine (#1) 2024 9, 12/31/2017, 12/06/2016, Additional history exists Lipid Panel 09/06/2025 09/06/2024, 05/0 05/2023, 09/03/2022 DTaP/Tdap/Td Vaccine (2 - Td or Tdap) 10/13/2027 10/12/2017 Medical Devices Implanted Type Area Ear Specialist Device Identifier Shelf Expiration Date Model / Serial / Lot Medtronic Cardiac Rhythm Mgmt Linqsys Reveal Linq Mycarelink Insertable Loop Recorder Automatic - [id number] - [id number] Implanted:Qty: 1 on 04/12/2018 by Jose E Prather MD at [facility] Medtronic Cardiac Rhythm Mgmt 01/02/2019 LINQSYS / [id number] / Procedures Procedure Name Priority Date/Time Associated [...] Result * eGFR (10/26/2020 6:06 AM CDT) Pathologist [facility] eGFR 57 mL/min/1.7 3 m2 MAKENZIE MARTE Comment: Interpretive Data Reference Interval Normal >/= [...] LAB BLOOD ORDERABLES Final R esult MAKENZIE [address] [facility] Department [place] [address] * (ABNORMAL) Hemoglobin A1c (10/26/2020 6:06 AM CDT) Hgb A1C 5.7(H) 4.0 - 5.6 % MAKENZIE MARTE Estimated Average Glucose 117 mg/dL MAKENZIE MARTE Comment: The ADA recommends reporting an estimated Average Glucose (eAG) with all Hemoglobin A1c results using the equation derived from a study of 507 normal and diabetic adults. Minority populations were underrepresented and children were not included. (Diabetes Care 31:0859-0770, 2008). The eAG is not equivalent to a fasting glucose. Blood 10/26/2020 6:06 AM CDT 10/26/2020 6:33 AM CDT us Tam Hernandez MD LAB BLOOD ORDERABLES Final R esult MAKENZIE MARTE [address] [facility] Department [place] [address] from Last 3 Months or Most Recently Relevant to Health Maintenance Insurance MEDICARE AET MEDICARE AETNA SENIOR SUPPLEMENT Advance Directives For more information, please contact: [phone] * Full Code (Latest Code Status on File) Date Activated Date Inactivated Comments 10/25/2020 9:30 AM 10/26/2020 10:10 PM Care Teams Preparatory Technician Relationship Specialty Start Date End Date Nicanor Acosta MD [address] [facility] [address] [place] [address] PCP - General 06/05/16 Rbuia Loomis NP [address] [facility] [address] [place] [address] Nurse Practitioner Neurology 10/26/20
--- OUTSIDE RECORDS SUMMARY | 2024-09-21 14:39 | XMS_ITS | Encounter Summary ---
Author Organization [facility] Medical [facility] Address [address] [place] [address] Care Team Providers Care Slot Machine Key Person Name Role Phone Nicanor Acosta MD Primary Care Provider [phone] Nicanor Acosta MD Primary Care Provider [phone] Rubia Loomis POPCORN ATTENDANT Unavailable [phone] Encounter Details Date Type Department Care Team (Late st Contact Info) Description 05/29/2016 Orders Only [facility] ProviderDanya MD [address] [place] [id number] Social History Tobacco Use Types Packs/Day Years Used Date Smoking Tobacco: Former Alcohol Use Standard Drinks/Week Comments Yes 0 (1 standard drink = 0.6 oz pur e alcohol) Sex and Gender Information Value Date Recorded Sex Assigned at Not on file 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 Historical Provider [facility] STEF QUINONES Final Result documented in this encounter Visit Diagnoses Not on filedocumented in this encounter Care Teams Slot Machine Key Person Relationship Specialty Start Date End Date Nicanor Acosta MD [address] [facility] [address] [place] [address] PCP - General 06/05/16 Nicanor Acosta MD [address] [facility] [address] [place] [address] PCP - General 01/28/15 06/04/16 Rubia Loomis NP [address] [facility] [address] [place] [address] Nurse Practitioner Neurology 10/26/20 documented as of this encounter
--- OUTSIDE RECORDS SUMMARY | 2024-09-21 14:39 | XMS_ITS | Clinical Summary ---
Author Organization [facility] Address [address] [place] [address] Care Team Providers Care Commercial Credit Specialist Name Role Phone Liborio Acosta MD Primary Care Provider Source Comments [facility],non-owned Affiliates and Associated Physician Practices is amultiple site organization consisting of ambulatory clinics and hospital sitesin [place], [place], [place] and [place]. This disclosure is being madepursuant to the Care Everywhere program and may not contain all information available regarding this patient. Last updated 17.[facility] Allergies Active Allergy Reactions Criticality Noted Date Comments Molds & Smuts Shortness of Breath 02/20/2009 Other 02/20/2009 Dust, cats Prednisone 02/20/2009 Makes sugar soar Medications * Be aware that medications may not be up to date on this document. Alwaysverify current medications with the patient. insulin glargine (LANTUS) 100 UNIT/ML injection Inject 60 Units subcutaneously at bedtime. Active lisinopril (PRINIVIL; ZESTRIL) 10 MG tablet Take 10 mg by mouth daily. Active atorvastatin (LIPITOR) 20 MG tablet Take 20 mg by mouth at bedtime. Active levothyroxine (SYNTHROID) 175 MCG tablet Take 175 mcg by mouth daily before breakfast. Active budesonide-for moterol (SYMBICORT) 160-4.5 MCG/ACT inhaler Inhale 2 Puffs by mouth daily with breakfast. Active albuterol HFA (VENTOLIN HFA) 8 gram inhaler Inhale 2 Puffs by mouth 2 times daily. Active busPIRone (BUSPAR) 10 MG tablet Take 20 mg by mouth every 4 hours. Active esomeprazole (NEXIUM) 40 MG capsule Take 40 mg by mouth daily before breakfast. Active mometasone (NASONEX) 50 MCG/ACT nasal spray [place] 2 Sprays into each nostril 2 times daily. Active theophylline CR 24hr (UNIPHYL) 400 MG tablet Take 400 mg by mouth daily with breakfast. Active cyclobenzaprin e (FLEXERIL) 10 MG tablet Take 1 Tab by mouth 3 times daily as needed for Muscle Spasms. 30 0 9 Active hydrocodone-ac etaminophen (NORCO) 10-325 MG tablet Take 2 Tabs by mouth every 6 hours as needed for Pain. 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 Gender Identity Not on file Sexual Orientation Not on file Last Filed Vital Signs Vital Sign Reading Time Taken Comments Blood Pressure 124/78 02/21/2009 2:02 PM TEMPLATE LAYOUT WORKER Pulse 58 02/21/2009 2:02 PM TEMPLATE LAYOUT WORKER Temperature 36.4 C (97.5 F) 02/21/2009 1:12 PM TEMPLATE LAYOUT WORKER Respiratory Rate 16 02/21/2009 2:02 PM TEMPLATE LAYOUT WORKER Oxygen Saturation 94% 02/21/2009 2:02 PM TEMPLATE LAYOUT WORKER Inhaled Oxygen Concentration - - Weight 109.3 kg (241 lb) 02/21/2009 5:30 AM TEMPLATE LAYOUT WORKER Height 180.3 cm (5' 11) 02/21/2009 5:30 AM TEMPLATE LAYOUT WORKER Body Mass Index 33.61 02/21/2009 5:30 AM TEMPLATE LAYOUT WORKER Plan of Treatment Health Maintenance Due Date Last Done Comments COLOGUARD (AGES 45-75) - COL ON CA SCREENING 1954 COLON MONITORING 1954 COLONOSCOPY - COLON CA SCREENING 1954 CT COLONOGRAPHY - COLON CA SCREENING 1954 Colorectal Cancer Screening 1954 FIT - COLON CA SCREENING 1954 FLEX SIG - COLON CA SCREENING 1954 MEDICARE AWV 12 MONTHS 1954 HEPATITIS C SCREENING 12/10/1972 DTAP/TDAP/TD VACCINES (1 - Tdap) 1973 PNEUMOCOCCAL VACCINE 50+ (1 of 2 - PCV) 1973 ZOSTER VACCINE (1 of 2) 2004 AAA SCREENING 12/16/2019 COVID-19 VACCINE (1 - 2023-2 5 season) 2023 DEPRESSION SCREENING 03/08/2024 LUNG CANCER SCREENING 05/26/2024 05/27/2023 INFLUENZA VACCINE (#1) 2024 Respiratory Syncytial Virus (RSV) Vaccine Pt: or over 60 yrs (1 - 1-dose 75+ series) 2029 HEPATITIS B VACCINE Aged Out No longe r eligible based on patient's age to complete this topic HIB VACCINE Aged Out No longer eligi ble based on patient's age to complete this topic HPV VACCINE Aged Out No longer eligi ble based on patient's age to complete this topic MENINGOCOCCAL (Group B) VACC INE SHARED DECISION-MAKING Aged Out No longer eligibl e based on patient's age to complete this topic MENINGOCOCCAL GROUPS A/C/Y/W VACCINE Aged Out No longer eligible b ased on patient's age to complete this topic Procedures Procedure Name Priority Date/Time Associated Diagnosis Comments CT LUNG SCREEN LOW DOSE Routine 05/27/2023 8:18 AM CDT Nicotine dependence, cigarettes, uncomplicated from Last 3 Months or Most Recently Relevant to Health Maintenance Results * CT LUNG SCREEN LOW DOSE (05/27/2023 8:18 AM CDT) Anatomical Region Laterality Modality Chest Computed Tomogra phy 05/27/2023 10:0 6 AM CDT Impressions 05/27/2023 10:11 AM CDT IMPRESSION: Multiple perifissural pulmonary nodules. These measure up to 5 mm. Lung RADS category 3 probably benign. A follow-up low dose CT in 6 months is recommended. Evidence for old granulomatous disease. ACR Lung-RADS Category/Recommendations: 0: Need prior comparisons or additional images 1: Negative: 12 month follow up LDCT (Low Dose CT) 2: Benign Appearin month follow up LDCT 3: Probably Benign: 6 month follow up LDCT 4A: Suspicious: 3 month follow up LDCT (or immediate PET if >7mm solid component) 4B: Suspicious: Immediate Chest CT or PET if >7mm solid component 4X: Cat 3 or 4A nodules with additional suspicious findings Modifier-S: Significant NON-lung cancer findings Modifier-C: Prior treated Lung Cancer. 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 TECHNIQUE: Thin section helical images were obtained through the chest using low-dose protocol. Sagittal and coronal reconstructions were performed. FINDINGS: No old studies are available for comparison purposes. There are degenerative changes of the spine. There is metallic artifact within the cervical spine. There is scarring and atelectasis within the lung bases. There is no focal consolidation. There is peribronchial thickening within the lower lobes. There is no pleural effusion. There is no pneumothorax. Numerous calcified granulomas are seen throughout the lungs. In addition, there is a 5 mm nodule in the left lower lobe along the fissure. There is a 3 to 4 mm subpleural nodule in the left lower lobe as well. There is a 4-5 mm subpleural nodule along the fissure in the left upper lobe. There is a 3 to 4 mm nodule along the right minor fissure. The central airways are normal in caliber. The thyroid gland is unremarkable. There is no axillary adenopathy. Calcified lymph nodes are seen within the right hilar region and mediastinum. Small AP window lymph nodes are present. The aorta is normal in caliber with no evidence for aneurysm or dissection. The heart is normal in size. There is extensive coronary artery atherosclerosis. Granulomas are seen within the spleen. Procedure Note Rafael Irwin MD - 05/27/2023 Procedure: CT LUNG SCREEN LOW DOSE Exam Date: 05/27/2023 8:19 AM Location: [facility] CT Lung Cancer Screening INDICATION: E11.621: Type 2 diabetes mellitus with foot ulcer (HCC) L97.519: Non-pressure chronic ulcer of other part of right foot with unspecified severity (HCC) , 50 pack year smoking history. TECHNIQUE: Thin section helical images were obtained through the chest using low-dose protocol. Sagittal and coronal reconstructions were performed. FINDINGS: No old studies are available for comparison purposes. Thereare degenerative changes of the spine. There is metallic artifact within the cervical spine. There is scarring and atelectasis within the lung bases. There is no focal consolidation. There is peribronchial thickening within the lower lobes. There is no pleural effusion. There is no pneumothorax.Numerous calcified granulomas are seen throughout the lungs. In addition, there kimmy 5 mm nodule in the left lower lobe along the fissure. There is a 3 to 4mm subpleural nodule in the left lower lobe as well. There is a 4-5 mm subpleural nodule along the fissure in the left upper lobe. There is a 3to 4 mm nodule along the right minor fissure. The central airways arenormal in caliber. The thyroid gland is unremarkable. There is no axillary adenopathy. Calcified lymph nodes are seen within the right hilar region and mediastinum. Small AP window lymph nodes are present. The aorta isnormal in caliber with no evidence for aneurysm or dissection. The heart is normal in size. There is extensive coronary artery atherosclerosis. Granulomas are seen within the spleen. IMPRESSION: Multiple perifissural pulmonary nodules. These measure up to 5 mm. Lung RADS category 3 probably benign. A follow-up low dose CT in 6 months is recommended. Evidence for old granulomatous disease. ACR Lung-RADS Category/Recommendations: 0: Need prior comparisons or additional images 1: Negative: 12 month follow up LDCT (Low Dose CT) 2: Benign Appearin month follow up LDCT 3: Probably Benign: 6 month follow up LDCT 4A: Suspicious: 3 month follow up LDCT (or immediate PET if >7mm solid component) 4B: Suspicious: Immediate Chest CT or PET if >7mm solid component 4X: Cat 3 or 4A nodules with additional suspicious findings Modifier-S: Significant NON-lung cancer findings Modifier-C: Prior treated Lung Cancer. For details of the ACR Lung-RADS program, categories andrecommendations: 1) https://www.acr.org/Quality-Safety/Resources/LungRADS 2) Internet search: Lung-RADS Lung Cancer Screening 3) Contact [facility] thoracic nurse coordinator ([phone]) > Interpreting Provider: Rafael Irwin MD on 05/27/2023 10:11 AM Liborio Acosta MD CT ORDERABLES Final R esult from Last 3 Months or Most Recently Relevant to Health Maintenance Insurance MEDICARE AETNA MEDICARE AETNA Care Teams Commercial Credit Specialist Relationship Specialty Start Date End Date Liborio Acosta MD [address] [place] [address] PCP - General 02/18/09
--- OUTSIDE RECORDS SUMMARY | 2024-09-21 14:39 | XMS_ITS | Encounter Summary ---
Author Organization [facility] Address [address] [place] [address] Care Team Providers Care Sintering Press Operator Name Role Phone Nicanor Acosta MD Primary Care Provider [phone] Nicanor Acosta MD Primary Care Provider [phone] Rubia Loomis BOAT CANVAS INSTALLER Unavailable [phone] Encounter Details Date Type Department Care Team (Late st Contact Info) Description 03/05/2016 Orders Only Arrhythmia Center ProviderDanya MD [address] [place] [address] Social History Tobacco Use Types Packs/Day Years Used Date Smoking Tobacco: Former Alcohol Use Standard Drinks/Week Comments Yes 0 (1 standard drink = 0.6 oz pur e alcohol) Sex and Gender Information Value Date Recorded Sex Assigned at Not on file 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 Historical Provider [facility] CARDIAC SERVICES STEF QUINONES Final Result documented in this encounter Visit Diagnoses Not on filedocumented in this encounter Care Teams Sintering Press Operator Relationship Specialty Start Date End Date Nicanor Acosta MD [address] [facility] [address] [place] [address] PCP - General 06/05/16 Nicanor Acosta MD [address] [facility] [address] [place] [address] PCP - General 01/28/15 06/04/16 Rubia Loomis NP [address] [facility] [address] [place] [address] Nurse Practitioner Neurology 10/26/20 documented as of this encounter
--- OUTSIDE RECORDS SUMMARY | 2024-09-21 14:39 | XMS_ITS | Encounter Summary ---
Author Organization [facility] Address [address] [place] [address] Care Team Providers Care Relay Checker Name Role Phone Nicanor Acosta MD Primary Care Provider [phone] Nicanor Acosta MD Primary Care Provider [phone] Rubia Loomis PHLEBOTOMIST LAB ASSISTANT Unavailable [phone] Encounter Details Date Type Department Care Team (Late st Contact Info) Description 04/09/2016 Orders Only Arrhythmia Center ProviderDanya MD [address] [place] [id number] Social History Tobacco Use Types Packs/Day Years Used Date Smoking Tobacco: Former Alcohol Use Standard Drinks/Week Comments Yes 0 (1 standard drink = 0.6 oz pur e alcohol) Sex and Gender Information Value Date Recorded Sex Assigned at Not on file 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 Historical Provider CV CARDIAC SERVICES STEF QUINONES Final Result documented in this encounter Visit Diagnoses Not on filedocumented in this encounter Care Teams Relay Checker Relationship Specialty Start Date End Date Nicanor Acosta MD [address] [facility] [address] [place] [address] PCP - General 06/05/16 Nicanor Acosta MD [address] [facility] [address] [place] [address] PCP - General 01/28/15 06/04/16 Rubia Loomis NP [address] [facility] [address] [place] [address] Nurse Practitioner Neurology 10/26/20 documented as of this encounter
--- OUTSIDE RECORDS SUMMARY | 2024-09-21 14:39 | XMS_ITS | Encounter Summary ---
Author Organization [facility] Address [address] [place] [address] Care Team Providers Care Product Developer Name Role Phone Nicanor Acosta MD Primary Care Provider [phone] Rubia Loomis HEAVY REPAIRER Unavailable [phone] Encounter Details Date Type Department Care Team (Late st Contact Info) Description 07/10/2016 Orders Only Arrhythmia Center ProviderDanya MD [address] [place] [address] Social History Tobacco Use Types Packs/Day Years Used Date Smoking Tobacco: Former Alcohol Use Standard Drinks/Week Comments Yes 0 (1 standard drink = 0.6 oz pur e alcohol) Sex and Gender Information Value Date Recorded Sex Assigned at Not on file 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 Historical Provider CV CARDIAC SERVICES STEF QUINONES Final Result documented in this encounter Visit Diagnoses Not on filedocumented in this encounter Care Teams Product Developer Relationship Specialty Start Date End Date Nicanor Acosta MD [address] [address] PCP - General 06/05/16 Rubia Loomis NP [address] [facility] [address] [place] [address] Nurse Practitioner Neurology 10/26/20 documented as of this encounter
--- OUTSIDE RECORDS SUMMARY | 2024-09-21 14:39 | XMS_ITS | Continuity of Care Document ---
Author Organization [facility] Address [address] [place] [address] Phone Care Team Providers Care Windows Technical Specialist Name Role Phone [facility] Unavailable Unavail able Alyssa Miranda Unavailable Unavailable Procedures Procedure Date BF Polycarb Sphcyl Independence To +/-4d .12-2d Frame - Up To $160 Anti-reflective Coating Eye Exam & Treatment Refraction Office/outpatient Visit, [facility] Advance Directives Directive Yes / No Effective Date File Name No Information Encounters Encounter Description Practice Location Reason(s) For Visit Diagnoses Date Provider Providers Copied on Encounter [facility], [address] [place] [address] [address], [place], [place], [id number], [place] tel:[phone] [facility] No Information Apr-0 8-201 0 [facility]. [address], [address], [place], [place], [id number], [place]. tel:[phone] Referring Provider: Barry diaz, [address] [facility] [address], [place], [address]. tel:[phone] sulting Provider: Alyssa Miranda, [address] [place], [address]. tel:[phone] [facility], [address] [place] [address] [address], [place], [place], [id number], [place] tel:[phone] [facility] No Information Apr-0 7-201 0 Sven Reddy. [address], [place], [address], [place]. tel:[phone] Referring Provider: Donny Hoffman, [address] [place], [address]. tel:[phone] Office/outpat ient Visit, [facility], [address], [place], [place], [id number], [place] tel:[phone] [facility] No Information 0 6-200 7 Delio Siddiqi. [address], [place], [address], [place]. tel:[phone] Referring Provider: Donny Hoffman, [address] [place] [address], [address]. tel:[phone] Family History Family Member Type Diagnosis Age At Onset No Information Payers Payer name Insurance type Covered alliance party ID Authoriza tion(s) No Information Social History [...]
--- NOTE | 2024-09-21 17:07 | ED_ITS ---
HPI - Extremity Injury (Lower) General Chief Complaint: Extremity Injury, Lower Stated Complaint: R knee pain/redness x 1 day Time Seen by Provider: 09/21/24 16:49 Source: patient Mode of arrival: ambulatory Limitations: no limitations History of Present Illness HPI Narrative: This is a 68-year-old male patient with past medical history significant is sleeping, eating or lesions status post ablation, COPD, type 2 diabetes mellitus completed and compared to to come in factors lumbar and daily drinker who presents to the emergency room with complaints of having swelling, redness, warmth of the right knee for the past 2 days. Patient was that he was kneeling on his knee on the concrete doing some working and over the course of past couple days the knee has become increasingly swollen red, hot and painful to the touch that is made worse by active range of motion with flexion and extension. Patient denies any paresthesias in the distal extremity. He denies any other acute complaints or other associated symptoms. Patient states he sent a picture of his knee to his physician and was told to come to the emergency room for evaluation. He is currently taking Xarelto. Related Data Home Medications ?Medication ?Instructions ?Recorded ?Confirmed ?Last Taken ?Type albuterol sulfate 90 mcg/actuation 2 puff inhalation Q4-6H PRN 05/08/20 10/23/20 10/23/20 12:00 History aerosol inhaler Shortness Of Breath buspirone 10 mg tablet 10 mg PO BID 05/08/20 10/23/20 10/23/20 06:00 History cyclobenzaprine 10 mg tablet 10 mg PO TID PRN Spasms 05/08/20 10/23/20 Unknown History fluticasone fur. 100 mcg-umeclid 1 ea inhalation DAILY 05/08/20 10/23/20 10/23/20 06:00 History 62.5 mcg-vilant 25 mcg inhalat.powder (Trelegy Ellipta) gabapentin 300 mg tablet 300 mg PO DAILY 05/08/20 10/23/20 10/22/20 20:00 History hydrocodone 7.5 mg-acetaminophen 1 tablet PO QID 05/08/20 10/23/20 10/23/20 14:00 History 325 mg tablet insulin glargine 100 unit/mL (3 55 unit subcut QAM 05/08/20 10/23/20 10/23/20 06:00 History mL) subcutaneous pen (Lantus Solostar U-100 Insulin) levothyroxine 200 mcg tablet 200 mcg PO DAILY 05/08/20 10/23/20 10/23/20 06:00 History lisinopril 20 mg tablet 20 mg PO DAILY 05/08/20 10/23/20 10/23/20 06:00 History metoprolol succinate 100 mg 100 mg PO DAILY 05/08/20 10/23/20 10/23/20 06:00 History tablet,extended release 24 hr pantoprazole 40 mg tablet,delayed 40 mg PO DAILY 05/08/20 10/23/20 10/23/20 06:00 History release pravastatin 40 mg tablet 40 mg PO DAILY 05/08/20 10/23/20 10/23/20 06:00 History rivaroxaban 20 mg tablet (Xarelto) 20 mg PO HS 05/08/20 10/23/20 10/22/20 20:00 History Allergies Allergy/AdvReac Type Severity Reaction Status Date / Time prednisone AdvReac Intermediate INCREASED Verified 09/21/24 14:30 GLUCOSE LEVEL Cat Dander Allergy Severe BREATHING Uncoded 09/21/24 14:30 DIFFICULTY Dust Allergy Severe BREATHING Uncoded 09/21/24 14:30 DIFFICULTY Review of Systems 2 Review of Systems: All systems reviewed & are unremarkable except as noted in HPI and below PMFSH Past Medical History Medical History History of CVA (cerebrovascular accident) mild R sided weakness at baseline Positive colorectal cancer screening using Cologuard test Hypothyroid Diabetes COPD (chronic obstructive pulmonary disease) Atrial fibrillation had ablation Hypertension Hyperlipidemia Social History Social History Smoking packs per day: 1 Smoking cigarettes per day: 20.0 Years smoked: 50 Smoking pack-years: 50.00 Smoking status: Current every day smoker Tobacco type: cigarettes Second hand tobacco smoke exposure: Yes Alcohol intake: current Drinks per week: 6 Alcohol use details: BEERS Substance use: never Substance use type: does not use Living arrangements: with family Gender identity (if verbalized by the patient): Male Sexual Orientation (if Verbalized by the Patient): Straight or Heterosexual Spiritual care concerns: No Exam 2 Const: General: healthy appearing and no acute distress Nutritional Appearance: well nourished Orientation/consciousness: patient oriented x3 Limitations: no limitations HENMT: Head: normal to inspection Face and sinus: normal facial exam T hroat: posterior oropharynx normal Eyes: Conjunctivae: conjunctivae normal Neck: Neck: normal visual inspection and no lymphadenopathy Chest: Other: Nontender to palpation Resp: Effort & Inspection: normal respiratory effort Auscultation: clear to auscultation bilaterally Cardio: Rate: regular rate Rhythm: regular rhythm Heart sounds: no murmurs GI: Inspection: non-distended GI Palp: Yes Soft to palpation, No Tenderness to palpation present (GI) and No Guarding due to palpation present (GI) A uscultation: normal bowel sounds Back/Spine/Pelvis: Back: no CVA tenderness Skin: General skin exam: normal color Rashes: no rashes Wounds: no wounds Neuro: General: patient oriented x3 and moves all extremities Speech: n ormal speech Gait exam (Neuro): Normal gait present Extrem: General: edema Other: Right knee with erythema, edema an obvious effusion present. There is full active range of motion with extension and flexion. No lesions, abrasions on the surface of skin. Anterior drawer negative. No ballottment, negative Enedelia. Skin warm to the touch. Psych: Mental Status: mental status grossly normal Course Course Emergency Course: Patient's physical exam as noted. Workup initiated with labs and imaging. Inflammatory markers are high, however patient does not have leukocytosis. He does not appear to be toxic. He has normal renal function. Shared decision- making was performed the patient at side and he is comfortable with taking a short course of steroids, resting, icing and elevating. He will be wrapped with an Yasmany wrap for swelling. Patient advised on return to emergency room precautions including fevers greater than 100.4, increasing swelling, increasing pain or any streaking up or down the leg. He verbalizes understanding is discharged at this time stable condition. Vital Signs Vital signs: Vital Signs Temperature 98.4 F 09/21/24 14:31 Pulse Rate 66 09/21/24 14:31 Respiratory Rate 18 09/21/24 14:31 Blood Pressure 172/77 H 09/21/24 14:31 Pulse Oximetry 97 09/21/24 14:31 Oxygen Delivery Room Air 09/21/24 14:31 Temperature 98.4 F 09/21/24 14:31 Pulse Rate 66 09/21/24 14:31 Respiratory Rate 18 09/21/24 14:31 Blood Pressure 172/77 H 09/21/24 14:31 Pulse Oximetry 97 09/21/24 14:31 Oxygen Delivery Room Air 09/21/24 14:31 MDM - Extremity Injury (Lower) MDM Narrative Medical decision making narrative: Patient with noted risk factors for septic joint of diabetes mellitus although less likely given patient's normal vital signs. Most likely diagnosis is prepatellar bursitis given the weight-bearing that was recently placed on the knee through the patient's given history. Findings are most consistent with Prepatellar Bursitis. He has preserved AROM and no deficits. See ED course. Patient discharged at this time in stable condition. Differential Diagnosis Differential diagnosis: Likely other (Gout, septic joint, prepatellar bursitis, cellulitis) Lab Data 09/21/24 17:21 09/21/24 17:21 Labs: Lab Results 09/21/24 Range/Units 17:21 WBC 8.4 (4.5-10.0) K/mm3 RBC 3.88 L (4.6-6.20) M/mm3 Hgb 12.3 L (14.0-18.0) g/dL Hct 38.3 L (42.0-52.0) % MCV 98.7 (80-100) fl MCH 31.7 (26-34) pg MCHC 32.1 (32-36) g/dl RDW 13.7 (11.5-14.5) % Plt Count 196 (150-375) k/mm3 MPV 9.7 (7.4-10.4) fl Immature Gran % (Auto) 0.2 (0-0.5) % Neut % (Auto) 55.7 (45.5-73.1) % Lymph % (Auto) 29.3 (18.3-44.2) % Hamilton % (Auto) 12.2 H (2.6-8.5) % Eos % (Auto) 2.0 (0-4.4) % Baso % (Auto) 0.6 (0.2-1.2) % Lymph # (Auto) 2.46 (0.9-3.2) K/mm3 Hamilton # (Auto) 1.0 H (0.1-0.6) K/mm3 Eos # (Auto) 0.2 (0-0.3) K/mm3 Baso # (Auto) 0.1 (0.0-0.1) K/mm3 Abs Immat Gran (auto) 0.02 (0.00-0.031) K/mm3 Absolute Neuts (auto) 4.7 (1.3-6.7) K/mm3 Absolute Nucleated RBC 0.000 (0.0-0.012) K/mm3 Nucleated RBC % 0.0 (0.0-0.2) % ESR 35 H (0-20) mm/hr Sodium 138 (137-145) mmol/L Potassium 4.4 (3.4-5.0) mmol/L Chloride 105 (98-107) mmol/L Carbon Dioxide 26 (22-30) mmol/L Anion Gap 7 (4-12) mmol/L BUN 21 H (9-20) mg/dL Creatinine 1.24 (0.7-1.3) mg/dL Estim Creat Clear Calc 54 ml/min Estimated GFR 58 L (59 - ) Glucose 101 (65-110) mg/dL Uric Acid 6.4 (3.5-8.5) mg/dL Calcium 8.6 (8.4-10.2) mg/dL Total Bilirubin 0.4 (0.2-1.3) mg/dL AST 26 (17-59) U/L ALT 19 (6-50) U/L Alkaline Phosphatase 54 (38-126) U/L C-Reactive Protein 3.1 H (<1.0) mg/dL Total Protein 7.0 (6.3-8.2) g/dL Albumin 3.9 (3.5-5.1) g/dL Imaging Data Attestation: I personally reviewed and interpreted this imaging study as follows: Radiologist's impression: Soft tissue swelling noted. No bony abnormalities. He considers cellulitis/bursitis Discharge Plan Discharge Clinical Impression: Bursitis, prepatellar, right Patient Disposition: Home Condition: Stable Additional Instructions: Thank you for allowing us to evaluate even the emergency room this evening. Your workup consisted of labs and imaging that are consistent with a prepatellar bursitis which is an inflammatory response in your knee. You do not show any signs of acute infection. Your being started on a short course of steroids. Please take the meds ordered. Please wear Yasmany wrap to need for swelling and elevate apply ice. Return to the emergency room if have any temperature greater than 100.4, any red streaking or increased pain. Please make a follow-up appoint with her primary care provider next week. Patient Language: Cook Islander Prescriptions: New prednisone 50 mg tablet 50 mg PO DAILY Qty: 7 0RF No Action amoxicillin-pot clavulanate 875-125 mg tablet 1 tablet PO Q12H 7 Days Qty: 14 0RF cyclobenzaprine 10 mg Tablet 10 mg PO TID PRN (Reason: Spasms) pravastatin 40 mg tablet 40 mg PO DAILY lisinopril 20 mg tablet 20 mg PO DAILY metoprolol succinate 100 mg tablet extended release 24 hr 100 mg PO DAILY hydrocodone-acetaminophen 7.5-325 mg tablet 1 tablet PO QID Rx Instructions: takes 1/2 tab 4 times daily pantoprazole 40 mg tablet,delayed release (DR/EC) 40 mg PO DAILY buspirone 10 mg tablet 10 mg PO BID levothyroxine 200 mcg tablet 200 mcg PO DAILY albuterol sulfate 90 mcg/actuation HFA aerosol inhaler 2 puff INHALATION Q4-6H PRN (Reason: Shortness Of Breath) gabapentin 300 mg Tablet 300 mg PO DAILY Patient Comments: ONLY TAKES AT NIGHT 300MG Rx Instructions: takes at night Lantus Solostar U-100 Insulin 100 unit/mL (3 mL) insulin pen 55 unit SUBCUT QAM Xarelto 20 mg tablet 20 mg PO HS Trelegy Ellipta 100-62.5-25 mcg blister with device 1 ea INHALATION DAILY acetaminophen 500 mg capsule 1,000 mg PO Q6H PRN (Reason: pain) Qty: 30 0RF Follow-up/Referrals: PHYSICIAN,BEAN SPROUT LABORER [Primary Care Provider] - Time of Disposition: 19:07
--- OUTSIDE RECORDS SUMMARY | 2024-09-21 17:08 | XMS_ITS | Continuity of Care Document ---
Author Organization [facility] Address [address] [place] [address] Phone Care Team Providers Care Test Boring Crew Chief Name Role Phone [facility] Unavailable Unavail able Alyssa Miranda Unavailable Unavailable Procedures Procedure Date BF Polycarb Sphcyl [place] To +/-4d .12-2d Frame - Up To $160 Anti-reflective Coating Eye Exam & Treatment Refraction Office/outpatient Visit, [facility] Advance Directives Directive Yes / No Effective Date File Name No Information Encounters Encounter Description Practice Location Reason(s) For Visit Diagnoses Date Provider Providers Copied on Encounter [facility], [address] [place] [address] [address], [place], [place], [id number], [place] tel:[phone] [facility] No Information Apr-0 8-201 0 [facility]. [address] [facility], [address], [place], [place], [address], [place]. tel:[phone] Referring Provider: Barry diaz, [address] [facility] [address], [address]. tel:[phone] sulting Provider: Alyssa Miranda, [address] [place], [address]. tel:[phone] [facility], [address] [place] [address] [address], [place], [place], [id number], [place] tel:[phone] [facility] No Information Apr-0 7-201 0 Sven Reddy. [address], [place], [address], [place]. tel:[phone] Referring Provider: Donny Hoffman, [address] [place], [address]. tel:[phone] Office/outpat ient Visit, [facility], [address], [place], [place], [id number], [place] tel:[phone] [facility] [place] No Information 0 6-200 7 Delio Siddiqi. [address], [place], [address], [place]. tel:[phone] Referring Provider: Donny Hoffman, [address] [place] [address], [address]. tel:[phone] Family History Family Member Type Diagnosis Age At Onset No Information Payers Payer name Insurance type Covered libertarian ID Authoriza tion(s) No Information Social History [...]
--- OUTSIDE RECORDS SUMMARY | 2024-09-21 17:08 | XMS_ITS | Clinical Summary ---
Author Organization [facility] Address [address] [place] [address] Care Team Providers Care Screen Cleaner Name Role Phone Nicanor Acosta MD Primary Care Provider Rubia Loomis AIR DRILL OPERATOR Unavailable [phone] Allergies Active Allergy Reactions Criticality Noted Date [...] basal ganglia infarcts seen on MRI 10/23/2020 [place], [place] Ulcerative colitis without complications 021 Well [...] (03/29/2018): Added automatically from request for surgery [id number] Status post placement of implantable loop record er 08/07/2016 Overview (04/25/2018): Arterial Remodeling Technologiestronic [id number] imp loop recorder for AF management s/p PVI imp on 04/12/18. Yamilka/Byalee Burnham History of anticoagulant therapy 09/21/2014 Overview (06/11/2016): Chronic anticoagulation Postprocedural state 09/21/2014 Overview (06/11/2016): S/P ablation of atrial fibrillation Atrial fibrillation 01/26/2014 Overview (06/11/2016): Atrial fibrillation Encounters Date Type Department Care Team Description 09/06/2024 10:30 AM CDT Office Visit 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 Gender Identity Not on file Sexual Orientation [...] 10/13/2027 10/12/2017 Medical Devices Implanted Type Area White Sugar Supervisor Device Identifier Shelf Expiration Date Model / Serial / Lot Medtronic Cardiac Rhythm Mgmt Linqsys Reveal Linq Mycarelink Insertable Loop Recorder Automatic - [id number] - [id number] Implanted:Qty: 1 on 04/12/2018 by Jose E Prather MD at [facility] Medtronic Cardiac Rhythm Mgmt 01/02/2019 [id number] / [id number] / Procedures Procedure Name Priority Date/Time Associated [...] LAB BLOOD ORDERABLES Final R esult MAKENZIE [address] [facility] Department [place] [address] * (ABNORMAL) Hemoglobin A1c (10/26/2020 6:06 AM CDT) Hgb A1C 5.7(H) 4.0 - 5.6 % MAKENZIE MARTE Estimated Average Glucose 117 mg/dL MAKENZIE MARTE Comment: The ADA recommends reporting an estimated Average Glucose (eAG) with all Hemoglobin A1c results using the equation derived from a study of 507 normal and diabetic adults. Minority populations were underrepresented and children were not included. (Diabetes Care 31:1870-6775, 2008). The eAG is not equivalent to a fasting glucose. Blood 10/26/2020 6:06 AM CDT 10/26/2020 6:33 AM CDT us Tam Hernandez MD LAB BLOOD ORDERABLES Final R esult MAKENZIE MARTE [address] [facility] [place] [address] from Last 3 Months or Most Recently Relevant to Health Maintenance Insurance MEDICARE AET MEDICARE AETNA SENIOR SUPPLEMENT Advance Directives For more information, please contact: [phone] * Full Code (Latest Code Status on File) Date Activated Date Inactivated Comments 10/25/2020 9:30 AM 10/26/2020 10:10 PM Care Teams Screen Cleaner Relationship Specialty Start Date End Date Nicanor Acosta MD [address] [facility] [address] [place] [address] PCP - General 06/05/16 Rubia Loomis NP [address] [facility] [address] [place] [address] Nurse Practitioner Neurology 10/26/20
--- OUTSIDE RECORDS SUMMARY | 2024-09-21 17:08 | XMS_ITS | Clinical Summary ---
Author Organization [facility] Address [address] [place] [address] Care Team Providers Care Escalator Constructor Name Role Phone Liborio Acosta MD Primary Care Provider Source Comments [facility],non-owned Affiliates and Associated Physician Practices is amultiple site organization consisting of ambulatory clinics and hospital sitesin [place], [place], [place] and [place]. This disclosure is being madepursuant to the Care Everywhere program and may not contain all information available regarding this patient. Last updated 17.[facility] Allergies Active Allergy Reactions Criticality Noted Date [...] Active mometasone (NASONEX) 50 MCG/ACT nasal spray Ferguson 2 Sprays into each nostril 2 times [...] PM CDT Legal Sex Male 8:16 AM KITCHEN PORTER Gender Identity Not on file Sexual Orientation Not on file Last Filed Vital Signs Vital Sign Reading Time Taken Comments Blood Pressure 124/78 02/21/2009 2:02 PM KITCHEN PORTER Pulse 58 02/21/2009 2:02 PM KITCHEN PORTER Temperature 36.4 C (97.5 F) 02/21/2009 1:12 PM KITCHEN PORTER Respiratory Rate 16 02/21/2009 2:02 PM KITCHEN PORTER Oxygen Saturation 94% 02/21/2009 2:02 PM KITCHEN PORTER Inhaled Oxygen Concentration - - Weight 109.3 kg (241 lb) 02/21/2009 5:30 AM KITCHEN PORTER Height 180.3 cm (5' 11) 02/21/2009 5:30 AM KITCHEN PORTER Body Mass Index 33.61 02/21/2009 5:30 AM KITCHEN PORTER Plan of Treatment Health Maintenance Due Date [...] search: Lung-RADS Lung Cancer Screening 3) Contact [facility] thoracic nurse coordinator ([phone]) > Interpreting Provider: Rafael Irwin MD on 05/27/2023 10:11 AM Narrative 05/27/2023 10:11 AM CDT Procedure: CT LUNG SCREEN LOW DOSE Exam Date: 05/27/2023 8:19 AM Location: [facility] CT Lung Cancer Screening INDICATION: [...] DOSE Exam Date: 05/27/2023 8:19 AM Location: [facility] CT Lung Cancer Screening INDICATION: [...] search: Lung-RADS Lung Cancer Screening 3) Contact [facility] thoracic nurse coordinator ([phone]) > Interpreting Provider: Rafael Irwin MD on 05/27/2023 10:11 AM Liborio Acosta MD CT ORDERABLES Final R esult from Last 3 Months or Most Recently Relevant to Health Maintenance Insurance MEDICARE AETNA MEDICARE AETNA Care Teams Escalator Constructor Relationship Specialty Start Date End Date Liborio Acosta MD [address] [place] [address] PCP - General 02/18/09
--- OUTSIDE RECORDS SUMMARY | 2024-09-21 17:08 | XMS_ITS | Encounter Summary ---
Author Organization [facility] Address [address] [place] [address] Care Team Providers Care Software Installation Engineer Name Role Phone Nicanor Acosta MD Primary Care Provider [phone] Nicanor Acosta MD Primary Care Provider [phone] Rubia Loomis ASSIGNMENT EDITOR Unavailable Encounter Details Date Type Department Care Team (Late st Contact Info) Description 04/09/2016 Orders Only Arrhythmia Center ProviderDanya MD [address] [place] [address] Social History Tobacco Use Types Packs/Day Years Used Date Smoking Tobacco: Former Alcohol Use Standard Drinks/Week Comments Yes 0 (1 standard drink = 0.6 oz pur e alcohol) Sex and Gender Information Value Date Recorded Sex Assigned at Not on file 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
--- OUTSIDE RECORDS SUMMARY | 2024-09-21 17:08 | XMS_ITS | Encounter Summary ---
Author Organization [facility] Address [address] [facility] [address] [place] [address] Care Team Providers Care Order Processing Manager Name Role Phone Nicanor Acosta MD Primary Care Provider [phone] Nicanor Acosta MD Primary Care Provider [phone] Rubia Loomis FLEECER Unavailable [phone] Encounter Details Date Type Department Care Team (Late st Contact Info) Description 03/05/2016 Orders Only Arrhythmia Center ProviderDanya MD [address] [place] [address] Social History Tobacco Use Types Packs/Day Years Used Date Smoking Tobacco: Former Alcohol Use Standard Drinks/Week Comments Yes 0 (1 standard drink = 0.6 oz pur e alcohol) Sex and Gender Information Value Date Recorded Sex Assigned at Not on file 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
--- OUTSIDE RECORDS SUMMARY | 2024-09-21 17:08 | XMS_ITS | Encounter Summary ---
Author Organization [facility] Address [address] [place] [address] Care Team Providers Care Railroad Purchasing Agent Name Role Phone Nicanor Acosta MD Primary Care Provider [phone] Nicanor Acosta MD Primary Care Provider [phone] Rubia Loomis HAND RUG CLEANER Unavailable [phone] Encounter Details Date Type Department Care Team (Late st Contact Info) Description 05/29/2016 Orders Only Arrhythmia Center ProviderDanya MD [address] [place] [address] Social History Tobacco Use Types Packs/Day Years Used Date Smoking Tobacco: Former Alcohol Use Standard Drinks/Week Comments Yes 0 (1 standard drink = 0.6 oz pur e alcohol) Sex and Gender Information Value Date Recorded Sex Assigned at Not on file 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
--- OUTSIDE RECORDS SUMMARY | 2024-09-21 17:08 | XMS_ITS | Encounter Summary ---
Author Organization [facility] Medical Group Address [address] [place] [address] Care Team Providers Care Monorail Car Operator Name Role Phone Nicanor Acosta MD Primary Care Provider [phone] Rubia Loomis AIR CARRIER MAINTENANCE INSPECTOR Unavailable [phone] Encounter Details Date Type Department Care Team (Late st Contact Info) Description 07/10/2016 Orders Only Arrhythmia Center ProviderDanya MD [address] [place] [address] Social History Tobacco Use Types Packs/Day Years Used Date Smoking Tobacco: Former Alcohol Use Standard Drinks/Week Comments Yes 0 (1 standard drink = 0.6 oz pur e alcohol) Sex and Gender Information Value Date Recorded Sex Assigned at Not on file Legal Sex Male 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
--- OUTSIDE RECORDS SUMMARY | 2024-09-21 17:08 | XMS_ITS | Referral Summary ---
Author Organization [facility] Address [address] [place] [address] Care Team Providers Care Capsule Filler Name Role Phone Nicanor Acosta MD Primary Care Provider Rubia Loomis CREDIT PRODUCTS OFFICER Unavailable [phone] Encounters Date Type Department Care Team Description 09/06/2024 10:30 AM CDT Office Visit [facility] Medical [facility] Cardiology [address] [place] [address] Citlaly Zavala NP Primary hypertension [...] basal ganglia infarcts seen on MRI 10/23/2020 [place], [place] Ulcerative colitis without complications 021 Well [...] (03/29/2018): Added automatically from request for surgery [id number] Status post placement of implantable loop record er 08/07/2016 Overview (04/25/2018): Medtronic LNQ11 imp loop recorder for AF management s/p PVI imp on 04/12/18. 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 Gender Identity Not on file Sexual Orientation [...] on file Medical Devices Implanted Type Area Inside Plant Supervisor Device Identifier Shelf Expiration Date Model / Serial / Lot Medtronic Cardiac Rhythm Mgmt Linqsys Reveal Linq Mycarelink Insertable Loop Recorder Automatic - [id number] - [id number] Implanted:Qty: 1 on 04/12/2018 by Jose E Prather MD at [facility] Medtronic Cardiac Rhythm Mgmt 01/02/2019 LINQSYS / [id number] / Procedures Procedure Name Priority Date/Time Associated [...] CDT) eGFR 57 mL/min/1.7 3 m2 MAKENZIE MARTE [...] BLOOD ORDERABLES Final R esult MAKENZIE MARTE [address] [facility] Department [place] [address] * (ABNORMAL) Hemoglobin A1c (10/26/2020 [...] and children were not included. (Diabetes Care [id number], 2008). The eAG is not equivalent to a fasting glucose. Blood 10/26/2020 6:06 AM CDT 10/26/2020 6:33 AM CDT us Tam Hernandez MD LAB BLOOD ORDERABLES Final R esult MAKENZIE [address] [facility] Department [place] [address] from Last 3 Months or Most Recently Relevant to Health Maintenance Insurance MEDICARE AETNA MEDICARE AETNA SENIOR SUPPLEMENT Advance Directives For more information, please contact: [phone] * Full Code (Latest Code Status on File) Date Activated Date Inactivated Comments 10/25/2020 9:30 AM 10/26/2020 10:10 PM Care Teams Capsule Filler Relationship Specialty Start Date End Date Nicanor Acosta MD [address] [address] PCP - General 06/05/16 Rubia Loomis NP [address] [address] Nurse Practitioner Neurology 10/26/20
[2024-09-21 17:26] LABS: Hematocrit 38.3 % (42.0-52.0); Hemoglobin 12.3 g/dL (14.0-18.0); Immature Granulocyte Percent A 0.2 % (0-0.5); Lymphocytes Absolute Auto 2.46 K/mm3 (0.9-3.2); Mean Corpuscular HGB Conc 32.1 g/dl (32-36); Mean Corpuscular Hemoglobin 31.7 pg (26-34); Mean Corpuscular Volume 98.7 fl (80-100); Nucleated Red Blood Cells Absolute Auto 0.000 K/mm3 (0.0-0.012); Nucleated Red Blood Cells Perc 0.0 % (0.0-0.2); Platelet Count Result 196 k/mm3 (150-375); Red Blood Count 3.88 M/mm3 (4.6-6.20); White Blood Count 8.4 K/mm3 (4.5-10.0)
[2024-09-21] MEDS: KETOROLAC 30 MG/ML VIAL (*BKC) IM (17:36)
[2024-09-21 18:57] LABS: Alanine Aminotransferase 19 U/L (6-50); Albumin Level 3.9 g/dL (3.5-5.1); Alkaline Phosphatase 54 U/L (38-126); Anion Gap 7 mmol/L (4-12); Aspartate Amino Transferase 26 U/L (17-59); Bilirubin,Total 0.4 mg/dL (0.2-1.3); Blood Urea Nitrogen 21 mg/dL (9-20); CRP 3.1 mg/dL (<1.0); Calcium 8.6 mg/dL (8.4-10.2); Carbon Dioxide 26 mmol/L (22-30); Chloride 105 mmol/L (98-107); Estimated CRCL calculation 54 ml/min; Estimated Glomerular Filt Rate 58; Glucose 101 mg/dL (65-110); Potassium 4.4 mmol/L (3.4-5.0); Sodium 138 mmol/L (137-145); Total Protein 7.0 g/dL (6.3-8.2); Uric Acid 6.4 mg/dL (3.5-8.5)
== END 2024-09-21 19:38 | disposition home or self-care (01) ==
PROVIDERS: Emergency Provider Nurse Practitioner Adult Health
DX: M70.41 Prepatellar bursitis, right knee (principal); I69.951 Hemiplegia and hemiparesis following unspecified cerebrovascular disease affecting right dominant side; I48.91 Unspecified atrial fibrillation; I10 Essential (primary) hypertension; J44.9 Chronic obstructive pulmonary disease, unspecified; E03.9 Hypothyroidism, unspecified; E11.9 Type 2 diabetes mellitus without complications; E78.5 Hyperlipidemia, unspecified; F17.210 Nicotine dependence, cigarettes, uncomplicated; Z79.01 Long term (current) use of anticoagulants; Z79.899 Other long term (current) drug therapy
CPT/HCPCS: 36415; 73564; 80053; 84550; 85025; 85652; 86140; 96372; 99283; J1885

== ENCOUNTER 2024-11-15 07:03 | Outpatient (CLI) | payer MEDICARE, SELFPAY ==
--- NOTE | ~2024-11-15 | US_ITS ---
EXAMINATION: US aorta, 11/15/2024 7:29 CDT HISTORY: AAA Low back pain Comparison: None Technique: Caba-scale sonographic images were obtained Findings: There is no aneurysm identified of the visualized aorta or the proximal common iliac arteries. IMPRESSION: No aneurysm identified Reviewed, dictated and finalized at location A. IMPRESSION: No aneurysm identified
== END 2024-11-15 07:04 | disposition home or self-care (01) ==
DX: I71.30 Abdominal aortic aneurysm, ruptured, unspecified (principal)
CPT/HCPCS: 76775

== ENCOUNTER 2024-12-06 15:41 | Outpatient (CLI) | payer MEDICARE, SELFPAY ==
--- OUTSIDE RECORDS SUMMARY | 2009-06-12 19:00 | XMS_ITS | Continuity of Care Document ---
Author Organization [facility] [place] [address] [place] [address] Phone Care Team Providers Care Technician Inventory Specialist Name Role Phone [facility] Unavailable Unavail able Alyssa Miranda Unavailable Unavailable Procedures Procedure Date BF Polycarb Sphcyl Morris To +/-4d .12-2d Frame - Up To $160 Anti-reflective Coating Eye Exam & Treatment Refraction Office/outpatient Visit, [facility] Advance Directives Directive Yes / No Effective Date File Name No Information Encounters Encounter Description Practice Location Reason(s) For Visit Diagnoses Date Provider Providers Copied on Encounter [facility], [address] [place] [address] [address], [place], [place], [id number], [place] tel:[phone] [facility] No Information Apr-0 8-201 0 [facility]. [address], [address], [place], [place], [id number], [place]. tel:[phone] Referring Provider: Barry diaz, [address], [place], [address]. tel:[phone] sulting Provider: Alyssa Miranda, [address] [place], [address]. tel:[phone] [facility], [address] [place] [address] [address], [place], [place], [id number], [place] tel:[phone] [facility] No Information Apr-0 7-201 0 Sven Reddy. [address], [place], [address], [place]. tel:[phone] Referring Provider: Donny Hoffman, [address] [place], [address]. tel:[phone] Office/outpat ient Visit, [facility], [address], [place], [place], [id number], [place] tel:[phone] [facility] No Information 0 6-200 7 Delio Siddiqi. [address], [place], [address], [place]. tel:[phone] Referring Provider: Donny Hoffman, [address] [place] [address], [address]. tel:[phone] Family History Family Member Type Diagnosis Age At Onset No Information Payers Payer name Insurance type Covered democrat ID Authoriza tion(s) No Information Social History Type Description Quantity Date Captured Comments Sex Male Smoking Status No Information Chief Complaint And Reason For Visit No Information Reason For Referral Reason For Referral No Information History Of Present Illness Encounter Date Complaint History Of Prese nt Illness No Information Functional Status Date Functional Assessmen t No Information Instructions Date Instruction Additional Infor mation No Information Assessments Type Assessment Date No Information Patient Care Teams Name Effective Dates (start - stop) Status Members No Information
--- NOTE | ~2024-12-06 | MR_ITS ---
EXAMINATION: MR knee RT wo con DATE: 12/06/2024 16:25 INDICATION: Right knee pain and effusion. TECHNIQUE: Magnetic resonance imaging (MRI) of the right knee was performed without intravenous contrast. Sequences included coronal PD-weighted FSE, coronal PD-weighted FS FSE, sagittal T2-weighted FSE, sagittal PD-weighted FS FSE and axial PD weighted fat saturated FSE. COMPARISON: None. FINDINGS: Medial compartment: There is increased signal along the inner third of the posterior horn of the medial meniscus seen on single sagittal image #23 on series 7 and 8 which does not unambiguously extend to the articular surface which remains equivocal for a degeneration versus small tear. Articular cartilage is normal. Lateral compartment: Lateral meniscus is normal. Articular cartilage is normal. Patellofemoral compartment: Tiny central subchondral osteophyte at the site of a small deep chondral ulceration inferior aspect of the medial trochlea. Remaining patellofemoral cartilage is normal. Ligaments and tendons: Anterior and posterior cruciate ligaments are normal. The medial collateral ligament and fibular collateral ligament complex are normal. Mild distal quadriceps tendinopathy without discrete tear. There is also mild tendinopathy at the proximal patellar tendon. The visualized medial and lateral hamstring tendons as well as the iliotibial band are normal. Fluid: Physiologic amount of fluid in the joint space. No loose osteochondral bodies identified. Osseous/other: Bone alignment is normal. Normal marrow signal with no fracture or pathologic marrow replacing process. There is prepatellar soft tissue swelling with mild edema a discrete bursal fluid collection. IMPRESSION: 1. Mild increased signal along the inner third of the posterior horn of the medial meniscus on a single sagittal image which does not meet strict criteria for definitive diagnosis of meniscal tear and remains equivocal for either small meniscal tear versus mucoid degeneration. 2. Mild patellofemoral osteoarthritis with small region of high-grade chondromalacia at the inferior aspect of the medial trochlea. 3. Prepatellar soft tissue swelling with mild edema without discrete bursal fluid collection. 4. Mild distal quadriceps and proximal patellar tendinopathy without discrete tear. Reviewed, dictated and finalized at location A. IMPRESSION: 1. Mild increased signal along the inner third of the posterior horn of the med ial meniscus on a single sagittal image which does not meet strict criteria for definitive diagnosis of meniscal tear and remains equivocal for either small m eniscal tear versus mucoid degeneration. 2. Mild patellofemoral osteoarthritis with small region of high-grade chondroma lacia at the inferior aspect of the medial trochlea. 3. Prepatellar soft tissue swelling with mild edema without discrete bursal flu id collection. 4. Mild distal quadriceps and proximal patellar tendinopathy without discrete t ear.
--- OUTSIDE RECORDS SUMMARY | 2024-12-06 15:47 | XMS_ITS | Encounter Summary ---
Author Organization [facility] Medical Group Address [address] [place] [address] Care Team Providers Care Residential Installer Name Role Phone Nicanor Acosta MD Primary Care Provider [phone] Rubia Loomis MANAGER DIALYSIS Unavailable [phone] Encounter Details Date Type Department Care Team (Late st Contact Info) Description 07/10/2016 Orders Only Arrhythmia Center ProviderDanya MD [address] [place] [address] Social History Tobacco Use Types Packs/Day Years Used Date Smoking Tobacco: Former Alcohol Use Standard Drinks/Week Comments Yes 0 (1 standard drink = 0.6 oz pur e alcohol) Sex and Gender Information Value Date Recorded Sex Assigned at Not on file 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
--- OUTSIDE RECORDS SUMMARY | 2024-12-06 15:47 | XMS_ITS | Clinical Summary ---
Author Organization [facility] Address [address] [place] [address] Care Team Providers Care Pressurised Container Filler Name Role Phone Liborio Acosta MD Primary Care Provider Source Comments [facility],non-owned Affiliates and Associated Physician Practices is amultiple site organization consisting of ambulatory clinics and hospital sitesin [place], [place], [place] and [place]. This disclosure is being madepursuant to the Care Everywhere program and may not contain all information available regarding this patient. 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 Gender Identity Not on file Sexual Orientation Not on file Last Filed Vital Signs Vital Sign Reading Time Taken Comments Blood Pressure 124/78 02/21/2009 2:02 PM SUPERVISOR WATER TREATMENT PLANT Pulse 58 02/21/2009 2:02 PM SUPERVISOR WATER TREATMENT PLANT Temperature 36.4 C (97.5 F) 02/21/2009 1:12 PM SUPERVISOR WATER TREATMENT PLANT Respiratory Rate 16 02/21/2009 2:02 PM SUPERVISOR WATER TREATMENT PLANT Oxygen Saturation 94% 02/21/2009 2:02 PM SUPERVISOR WATER TREATMENT PLANT Inhaled Oxygen Concentration - - Weight 109.3 kg (241 lb) 02/21/2009 5:30 AM SUPERVISOR WATER TREATMENT PLANT Height 180.3 cm (5' 11) 02/21/2009 5:30 AM SUPERVISOR WATER TREATMENT PLANT Body Mass Index 33.61 02/21/2009 5:30 AM SUPERVISOR WATER TREATMENT PLANT Plan of Treatment Health Maintenance Due Date [...] (1 of 2) 2004 AAA SCREENING 12/16/2019 DEPRESSION SCREENING 03/08/2024 LUNG CANCER SCREENING 05/26/2024 05/27/2023 COVID-19 VACCINE (1 - 2023-2 5 season) 2024 INFLUENZA VACCINE (#1) 2024 Respiratory Syncytial Virus [...] search: Lung-RADS Lung Cancer Screening 3) Contact [facility] thoracic nurse coordinator ([phone]) > Interpreting Provider: Rafael Irwin MD on 05/27/2023 10:11 AM Narrative 05/27/2023 10:11 AM CDT Procedure: CT LUNG SCREEN LOW DOSE Exam Date: 05/27/2023 8:19 AM Location: [facility] CT Lung Cancer Screening INDICATION: [...] DOSE Exam Date: 05/27/2023 8:19 AM Location: [facility] CT Lung Cancer Screening INDICATION: [...] search: Lung-RADS Lung Cancer Screening 3) Contact [facility] thoracic nurse coordinator ([phone]) > Interpreting Provider: Rafael Irwin MD on 05/27/2023 10:11 AM Liborio Acosta MD CT ORDERABLES Final R esult from Last 3 Months or Most Recently Relevant to Health Maintenance Insurance MEDICARE AETNA MEDICARE AETNA Care Teams Pressurised Container Filler Relationship Specialty Start Date End Date Liborio Acosta MD [address] [place] [address] PCP - General 02/18/09
--- OUTSIDE RECORDS SUMMARY | 2024-12-06 15:47 | XMS_ITS | Encounter Summary ---
Author Organization [facility] Medical Group Address [address] [place] [address] Care Team Providers Care Automatic Spinning Lathe Setter Name Role Phone Nicanor Acosta MD Primary Care Provider [phone] Nicanor Acosta MD Primary Care Provider [phone] Rubia Loomis FIREARMS EXPERT Unavailable [phone] Encounter Details Date Type Department Care Team (Late st Contact Info) Description 03/05/2016 Orders Only Arrhythmia Center ProviderDanya MD [address] [place] [address] Social History Tobacco Use Types Packs/Day Years Used Date Smoking Tobacco: Former Alcohol Use Standard Drinks/Week Comments Yes 0 (1 standard drink = 0.6 oz pur e alcohol) Sex and Gender Information Value Date Recorded Sex Assigned at Not on file 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
--- OUTSIDE RECORDS SUMMARY | 2024-12-06 15:47 | XMS_ITS | Encounter Summary ---
Author Organization [facility] Medical Group Address [address] [place] [address] Care Team Providers Care Ice Sculptor Name Role Phone Nicanor Acosta MD Primary Care Provider [phone] Nicanor Acosta MD Primary Care Provider [phone] Rubia Loomis PALLIATIVE NURSE Unavailable [phone] Encounter Details Date Type Department Care Team (Late st Contact Info) Description 05/29/2016 Orders Only Arrhythmia Center ProviderDanya MD [address] [place] [address] Social History Tobacco Use Types Packs/Day Years Used Date Smoking Tobacco: Former Alcohol Use Standard Drinks/Week Comments Yes 0 (1 standard drink = 0.6 oz pur e alcohol) Sex and Gender Information Value Date Recorded Sex Assigned at Not on file 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
--- OUTSIDE RECORDS SUMMARY | 2024-12-06 15:47 | XMS_ITS | Encounter Summary ---
Author Organization [facility] Medical Group Address [address] [place] [address] Care Team Providers Care Practice Nurse Name Role Phone Nicanor Acosta MD Primary Care Provider [phone] Nicanor Acosta MD Primary Care Provider [phone] Rubia Loomis LICENSED DISPENSING OPTICIAN Unavailable [phone] Encounter Details Date Type Department Care Team (Late st Contact Info) Description 04/09/2016 Orders Only Arrhythmia Center ProviderDanya MD [address] [place] [address] Social History Tobacco Use Types Packs/Day Years Used Date Smoking Tobacco: Former Alcohol Use Standard Drinks/Week Comments Yes 0 (1 standard drink = 0.6 oz pur e alcohol) Sex and Gender Information Value Date Recorded Sex Assigned at Not on file 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 Gender Identity Not on file Sexual Orientation [...] on filedocumented in this encounter Care Teams Practice Nurse Relationship Specialty Start Date End Date Nicanor Acosta MD [address] [facility] [address] [place] [address] PCP - General 06/05/16 Nicanor Acosta MD [address] [facility] [address] [place] [address] PCP - General 01/28/15 06/04/16 Rubia Loomis NP [address] [facility] [address] [place] [address] Nurse Practitioner Neurology 10/26/20 documented as of this encounter
--- OUTSIDE RECORDS SUMMARY | 2024-12-06 15:47 | XMS_ITS | Clinical Summary ---
Author Organization [facility] Address [address] [place] [address] Care Team Providers Care Gynecology Teacher Name Role Phone Nicanor Acosta MD Primary Care Provider Rubia Loomis THRESHING DEPARTMENT SUPERVISOR Unavailable [phone] Allergies Active Allergy Reactions Criticality Noted Date [...] basal ganglia infarcts seen on MRI 10/23/2020 [place], [place] Ulcerative colitis without complications 021 Well [...] (03/29/2018): Added automatically from request for surgery [id number] Status post placement of implantable loop record er 08/07/2016 Overview (04/25/2018): [employer] Technologytronic LNQ11 imp loop recorder for AF management s/p PVI imp on 04/12/18. Yamilka/Baylee Burnham History of anticoagulant therapy 09/21/2014 Overview (06/11/2016): Chronic anticoagulation Postprocedural state 09/21/2014 Overview (06/11/2016): S/P ablation of atrial fibrillation Atrial fibrillation 01/26/2014 Overview (06/11/2016): Atrial fibrillation Encounters Date Type Department Care Team Description 09/06/2024 10:30 AM CDT Office Visit [facility] Medical Group Cardiology [address] [place] [address] Citlaly Zavala NP Primary hypertension (Primary Dx); Paroxysmal atrial fibrillation (HCC); Lipid screening from Last 3 Months Surgical History Surgery Date Site/Laterality Comments SHOULDER SURGERY shoulder surgery NECK SURGERY neck surgery HERNIA REPAIR Hernia repair Medical History Medical History Date Comments Hypertension Hypertension Chronic obstructive pulmonary disease COPD Hx Other Medical Hypothyroidsim, Post Surgical Type 2 diabetes mellitus Diabete s type 2; Comments: BCN 04/23/2014 - Atrial [...] on file 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 Gender Identity Not on file Sexual Orientation [...] Additional history exists Lipid Panel 09/06/2025 09/06/2024, 0505/2023, 09/03/2022 DTaP/Tdap/Td Vaccine (2 - Td or Tdap) 10/13/2027 10/12/2017 Medical Devices Implanted Type Area Face Cleaner Device Identifier Shelf Expiration Date Model / Serial / Lot Medtronic Cardiac Rhythm Mgmt Linqsys Reveal Linq Mycarelink Insertable Loop Recorder Automatic - [id number] - [id number] Implanted:Qty: 1 on 04/12/2018 by Jose E Prather MD at [facility] Medtronic Cardiac Rhythm Mgmt 01/02/2019 LINQSYS / [id number] / Procedures Procedure Name Priority Date/Time Associated [...] Capillary blood 09/06/2024 1 0:26 AM CDT us Citlaly Zavala NP POINT OF CARE TEST [...] BLOOD ORDERABLES Final R esult MAKENZIE MARTE [address] [place] [address] * (ABNORMAL) Hemoglobin A1c (10/26/2020 [...] and children were not included. (Diabetes Care 31:9856-4731, 2008). The eAG is not equivalent to a fasting glucose. Blood 10/26/2020 6:06 AM CDT 10/26/2020 6:33 AM CDT us Tam Hernandez MD LAB BLOOD ORDERABLES Final R esult MAKENZIE MARTE [address] Department [place] [address] from Last 3 Months or Most Recently Relevant to Health Maintenance Insurance MEDICARE AETNA MEDICARE AETNA SENIOR SUPPLEMENT Advance Directives For more information, please contact: [phone] * Full Code (Latest Code Status on File) Date Activated Date Inactivated Comments 10/25/2020 9:30 AM 10/26/2020 10:10 PM Care Teams Gynecology Teacher Relationship Specialty Start Date End Date Nicanor Acosta MD [address] [place] [address] PCP - General 06/05/16 Rubia Loomis NP [address] [place] [address] Nurse Practitioner Neurology 10/26/20
== END 2024-12-06 15:42 | disposition home or self-care (01) ==
DX: M17.11 Unilateral primary osteoarthritis, right knee (principal)
CPT/HCPCS: 73721